=== PATIENT | male | born 1940 | race Caucasian/White ===

== ENCOUNTER 2017-04-15 12:47 | Outpatient (CLI) | payer MEDICARE, OTHER ==
[2017-04-15 13:09] LABS: BASOPHILS # (AUTO) 0.1 10^3/uL (0.0-0.1); BASOPHILS % (AUTO) 0.9 %; EOSINOPHILS # (AUTO) 0.3 10^3/uL (0.0-0.7); EOSINOPHILS % (AUTO) 4.6 %; HGB - HEMOGLOBIN 14.4 g/dL (14.0-18.0); LYMPHOCYTES # (AUTO) 1.4 10^3/uL (1.5-3.5); LYMPHOCYTES % (AUTO) 22.8 %; MEAN CORPUSCULAR HEMOGLOBIN 32.2 pg (27.0-31.0); MEAN CORPUSCULAR HGB CONC 33.5 g/dL (32.0-36.0); MEAN CORPUSCULAR VOLUME 96.1 fL (80.0-94.0); MEAN PLATELET VOLUME 9.1 fL (7.4-11.4); MONOCYTES # (AUTO) 0.5 10^3/uL (0.0-1.0); NEUTROPHILS # (AUTO) 3.8 10^3/uL (1.5-6.6); NEUTROPHILS % (AUTO) 63.7 %; PLT - PLATELET COUNT 156 10^3/uL (130-450); RED BLOOD COUNT 4.48 10^6/uL (4.70-6.10); RED CELL DISTRIBUTION WIDTH 14.9 % (12.0-15.0); WHITE BLOOD COUNT 5.9 x10^3/uL (4.8-10.8)
[2017-04-15 14:02] LABS: ALBUMIN 4.9 g/dL (3.2-5.5); ALKALINE PHOSPHATASE 59 IU/L (42-121); ALT ALANINE AMINOTRANSFERASE 68 IU/L (10-60); AST ASPARTATE AMINOTRANSFERASE 56 IU/L (10-42); BILIRUBIN,TOTAL 1.2 mg/dL (0.2-1.0); BUN - BLOOD UREA NITROGEN 14 mg/dL (6-20); CALCIUM 9.6 mg/dL (8.5-10.3); CARBON DIOXIDE - CO2 19 mmol/L (21-32); CHLORIDE 102 mmol/L (101-111); CREATININE 0.9 mg/dL (0.6-1.2); GFR - MDRD 82 (>89); GLUCOSE 127 mg/dL (70-100); SODIUM 137 mmol/L (135-145); TOTAL PROTEIN 7.3 g/dL (6.7-8.2)
[2017-04-15 14:18] LABS: DIGOXIN < 0.2 ng/mL
[2017-04-15 16:24] LABS: HB2 TOTAL 15.5 g/dL; HEMOGLOBIN A1C 0.59 g/dL; HEMOGLOBIN A1C % 5.6 % (4.6-6.2)
== END 2017-04-15 12:48 | disposition home or self-care (01) ==
LOC: LAB 12:47
PROVIDERS: ATTEND Internal Medicine
DX: M19.90 Unspecified osteoarthritis, unspecified site (principal); N40.0 Benign prostatic hyperplasia without lower urinary tract symptoms; E11.9 Type 2 diabetes mellitus without complications; I48.2 Chronic atrial fibrillation; C18.9 Malignant neoplasm of colon, unspecified; I25.10 Atherosclerotic heart disease of native coronary artery without angina pectoris; Z79.899 Other long term (current) drug therapy
CPT/HCPCS: 36415; 80053; 80162; 83036; 85025; 87640

== ENCOUNTER 2017-05-27 11:06 | Outpatient (CLI) | payer MEDICARE, OTHER | END 2017-05-27 11:07 | disposition home or self-care (01) | LOC: LAB 11:06 | PROVIDERS: ATTEND Orthopaedic Surgery | DX: Z01.812 Encounter for preprocedural laboratory examination (principal); M16.11 Unilateral primary osteoarthritis, right hip | CPT/HCPCS: 36415; 86850; 86900; 86901 ==

== ENCOUNTER 2017-05-28 06:11 | Inpatient (IN) | payer MEDICARE, OTHER ==
[2017-05-28] MEDS ORDERED: CELECOXIB 100 MG CAPSULE PO ONE (06:31)
[2017-05-28] MEDS ORDERED: ceFAZolin 2 GM/50 ML 2 GM/50 ML BAG IV ONE (06:31)
[2017-05-28] MEDS ORDERED: LACTATED RINGERS 1,000 ML IV ONE ×2 (07:14→09:39)
[2017-05-28] MEDS ORDERED: ROPIVACAINE 0.2% PF 20 ML AMPULE SUBQ ONE (08:27)
[2017-05-28] MEDS ORDERED: KETOROLAC 15 MG/ML VIAL IVP ONE (08:28)
[2017-05-28] MEDS ORDERED: EPINEPHrine 1 MG/ML AMP IVP ONE (08:29)
[2017-05-28] MEDS ORDERED: LIDOCAINE MPF 1%-EPI 1:200000 30 ML VIAL SUBQ ONE (08:29)
[2017-05-28] MEDS ORDERED: BUPIVACAINE 0.25% PF 30 ML VIAL SUBQ ONE (08:30)
[2017-05-28] MEDS ORDERED: ROCURONIUM 50 MG/5 ML VIAL IVP ONE (09:00)
[2017-05-28] MEDS ORDERED: LIDOCAINE-MPF 2% 5 ML VIAL IM ONE (09:00)
[2017-05-28] MEDS ORDERED: fentaNYL 100 MCG/2 ML VIAL IVP ONE (09:00)
[2017-05-28] MEDS ORDERED: ONDANSETRON 4 MG/2 ML VIAL IVP ONE (09:00)
[2017-05-28] MEDS ORDERED: MIDAZOLAM 2 MG/2 ML VIAL IVP ONE (09:00)
[2017-05-28] MEDS ORDERED: ePHEDrine 50 MG/ML VIAL IVP ONE (09:00)
[2017-05-28] MEDS ORDERED: ACETAMINOPHEN 1,000 MG/100 ML 100 ML IV ONE (09:00)
[2017-05-28] MEDS ORDERED: TRANEXAMIC ACID 1,000 MG/10 ML VIAL IV ONE (09:00)
[2017-05-28] MEDS ORDERED: PROPOFOL 200 MG/20 ML VIAL IVP ONE (09:00)
--- NOTE | 2017-05-28 10:00 | OPERATIVE REPORT ---
Operative Report - General Admit Date: 05/28/17 Procedure Date: 05/28/17 Planned Procedure: right GRETA Pre-Op Diagnosis: DJD right hip Procedure Performed: right GRETA Post Op Diagnosis: same - Procedure Note Primary Surgeon: brad Anesthesia Provider: Una Anesthesia Technique: General ET tube Estimated Blood Loss (mL): 200
[2017-05-28] MEDS ORDERED: PROCHLORPERAZINE 10 MG/2 ML VIAL IVP PRN (10:01)
[2017-05-28] MEDS ORDERED: ONDANSETRON 4 MG/2 ML VIAL IVP PRN (10:01)
[2017-05-28] MEDS ORDERED: SENNA 8.6 MG TABLET PO PRN (10:01)
[2017-05-28] MEDS ORDERED: BISACODYL 10 MG SUPP PR PRN (10:01)
[2017-05-28] MEDS ORDERED: oxyCOD/ACETAMIN 5 MG/325 MG TABLET PO PRN (10:01)
[2017-05-28] MEDS ORDERED: SODIUM CHLORIDE FLUSH 0.9% 10 ML SYRINGE IVP PRN (10:01)
--- NOTE | 2017-05-28 10:11 | PROVIDER PROGRESS NOTE ---
Subjective - General Admit Date: 05/28/17 Procedure Date: 05/28/17 Post Op Days: 0 Objective - Patient Data Vital Signs: Vital Signs x48h Temp Pulse Resp BP Pulse Ox 05/28/17 06:43 36.9 C 86 16 136/91 H 97 Weight: Weight 05/26/17 05/27/17 05/28/17 23:59 23:59 23:59 Weight (kg) 81.3 kg Intake & Output: Intake and Output Totals x24h 05/26/17 05/27/17 05/28/17 23:59 23:59 23:59 Output Total 100 Balance -100 - Lab Results Other Lab Results: Lab Results x24hrs 05/28/17 05/28/17 05/28/17 Range/Units 08:49 07:29 07:01 Whole Blood INR 1.1 (0.8-1.2) POC Whole Bld Glucose 158 H 133 H (70 - 100) mg/dL Impression/Plan - Problem List Problem List: s/p right total hip arthroplasty This patient is expected to be discharged prior to 96hr hospitalization.
[2017-05-28] MEDS: HYDROmorphone 1 MG/ML SYRINGE ONE ×2 (10:23→10:58)
[2017-05-28] MEDS ORDERED: fentaNYL 100 MCG/2 ML VIAL ONE (10:24)
[2017-05-28 11:38] LABS: HB2 TOTAL 12.5 g/dL; HEMOGLOBIN A1C 0.5 g/dL; HEMOGLOBIN A1C % 5.8 % (4.6-6.2)
[2017-05-28] MEDS: INSULIN ASPART 300 UNIT/3 ML PEN SUBQ SCH ×3 (11:53→21:34)
--- NOTE | 2017-05-28 12:33 | OPERATIVE REPORT ---
DATE OF SERVICE: 05/28/2017 Physician: Ginger Styles MD PREOPERATIVE DIAGNOSIS: Right hip osteoarthritis. POSTOPERATIVE DIAGNOSIS: Right hip osteoarthritis. PROCEDURE PERFORMED: Anterior approach right total hip arthroplasty. SURGEON: Ginger Styles MD ANESTHESIA: General by Breana Donnelly. INDICATIONS FOR SURGERY: The patient is a 76-year-old male who has progressive and severe degenerative arthritis of his right hip. This patient has failed nonoperative measures including anti-inflammatory use and previous hip injection. He desires total hip arthroplasty. FINDINGS AT SURGERY: Patient's hip joint showed effusion. His articulation showed absence of cartilage on the femoral head and mild cystic change in the acetabulum. DESCRIPTION OF OPERATIVE PROCEDURE: The patient was taken to the operating room. He was placed in a supine position. He was given a general anesthetic. The patient had a Oconnor catheter placed. His hip and legs were sterilely prepped and draped in standard fashion in preparation for anterior approach total hip arthroplasty. Following this, a surgical timeout, the surgery progressed with an approximately 8 cm incision directed off the anterolateral anterior superior iliac spine towards the femur. This incision taken through skin and subcutaneous tissue down to the fascia overlying tensor fascia muscle. This fascia was incised longitudinally and a muscle was gently elevated off the fascia to expose the medial border and dissect directly posterior than down to the hip capsule where further fatty tissues were encountered and vessels were ligated and the capsule exposed. Once the capsule was identified and retractors positioned, an anterior capsulectomy was performed. Retractors were positioned intra-articular and positioned around the acetabulum to expose the femoral head and neck. A neck osteotomy and a napkin ring of bone were removed with the saw and the corkscrew was used to remove the femoral head. The retractors were then repositioned around the acetabulum and labrum and soft tissues were reflected somewhat and excised to gain a very excellent view of the cup, at which point, sequential reaming was begun at 46 mm initially centralized and then advancing up to 53 mm for a 54 cup, which was a G7 cup inserted and then secured with 2 screws. A standard liner was applied of poly. The femur was exposed carefully with retractors. The foot of the table was bent down to allow positioning and access. A femoral canal starter was used to gain femoral entry followed by careful sequential broaching, working up to ultimately a size 13 broach and at this size trial reduction was performed and the most appropriate reconstruction of the anatomy occurred with a high offset femoral stem and a 40 mm standard neck length, head size and this was very stable and reconstructed limb lengths in a very excellent fashion. These components were removed and the implantable components brought in and the high offset 13 Taperloc stem inserted, followed by application of the size 40 standard neck head. The reduction was achieved and the hip tested for stability, which was excellent. Tested again for limb lengths, which were equal. Irrigation was performed, both with saline and with dilute Betadine solution. Following this, there was minimal bleeding and closure was undertaken with 0 Vicryl in a running fashion in the fascia over the tensor in the lateral thigh, followed by subcutaneous 0 and 2-0 Vicryl closure and skin 4-0 Monocryl closure. Sterile dressings were applied. The patient was then transported to the hospital bed and taken to the recovery room in stable condition. ESTIMATED BLOOD LOSS: 200 mL COMPLICATIONS: None. COUNTS: Sponge and needle counts correct. IMPLANTS USED: [employer] Taperloc size 13 high offset component, a standard 40 mm head, and a G7 acetabular cup inserted with 2 screws and a standard poly liner. TD: 05/28/2017 12:32
[2017-05-28] MEDS: KETOROLAC 15 MG/ML VIAL IVP PRN ×2 (12:50→20:08)
--- NOTE | 2017-05-28 14:08 | XRAY Report ---
TWO VIEW RIGHT HIP: 05/28/2017 CLINICAL INDICATION: Postop. FINDINGS: Frontal and crosstable lateral views of the right hip demonstrate a right hip replacement in place. There is no evidence of acute fracture or immediate hardware complication. IMPRESSION: EXPECTED POSTOPERATIVE APPEARANCE OF HIP REPLACEMENT. TD: 05/28/2017 14:07
[2017-05-28] MEDS: WARFARIN 5 MG TABLET PO SCH (14:30)
[2017-05-28] MEDS: SODIUM CHLORIDE FLUSH 0.9% 10 ML SYRINGE IVP SCH ×2 (14:32→20:36)
[2017-05-28] MEDS: SODIUM CHLORIDE 0.45% 1,000 ML IV SCH (15:49)
[2017-05-28] MEDS: ceFAZolin 2 GM/50 ML 2 GM/50 ML BAG IV SCH (16:09)
[2017-05-28] MEDS: metFORMIN 500 MG TABLET PO SCH (17:02)
[2017-05-28] MEDS: FINASTERIDE 5 MG TABLET PO SCH (20:35)
[2017-05-28] MEDS: FLUTICASONE NASAL SPRAY NAS SCH ×2 (20:35→20:38)
[2017-05-29] MEDS: ceFAZolin 2 GM/50 ML 2 GM/50 ML BAG IV SCH (00:09)
[2017-05-29] MEDS: SODIUM CHLORIDE 0.45% 1,000 ML IV SCH (03:43)
[2017-05-29] MEDS: KETOROLAC 15 MG/ML VIAL IVP PRN (03:50)
[2017-05-29] MEDS: SODIUM CHLORIDE FLUSH 0.9% 10 ML SYRINGE IVP SCH ×3 (04:38→18:36)
[2017-05-29 05:59] LABS: CALCIUM 8.3 mg/dL (8.5-10.3); CREATININE 1.1 mg/dL (0.6-1.2)
[2017-05-29] MEDS: INSULIN ASPART 300 UNIT/3 ML PEN SUBQ SCH ×4 (07:39→21:52)
[2017-05-29] MEDS: ALLOPURINOL 100 MG TABLET PO SCH (08:25)
[2017-05-29] MEDS: diltiaZEM CD 240 MG CAPSULE PO SCH (08:26)
[2017-05-29] MEDS: CHOLECALCIFEROL 1,000 UNIT TABLET PO SCH (08:32)
[2017-05-29] MEDS: ATORVASTATIN 40 MG TABLET PO SCH (08:32)
[2017-05-29] MEDS: FLUTICASONE NASAL SPRAY NAS SCH ×2 (08:33→21:51)
[2017-05-29] MEDS: metFORMIN 500 MG TABLET PO SCH ×2 (08:33→16:45)
[2017-05-29] MEDS: MULTIVITAMIN TABLET PO SCH (08:33)
[2017-05-29] MEDS: ASCORBIC ACID CHEW 500 MG TABLET PO SCH (08:33)
[2017-05-29] MEDS ORDERED: PHENOL THROAT SPRAY 177 ML MM PRN (08:40)
[2017-05-29 09:09] LABS: HGB - HEMOGLOBIN 11.6 g/dL (14.0-18.0)
--- NOTE | 2017-05-29 09:28 | PROVIDER PROGRESS NOTE ---
Subjective - General Admit Date: 05/28/17 Procedure Date: 05/28/17 Post Op Days: 1 Procedure Performed: right GRETA - Review of Systems Wound/Incisions: positive: Healing well Gastrointestinal: positive: No symptoms Genitourinary: positive: Hematuria (resolved today, but small amount last night) Objective - Patient Data Reviewed Vital Signs: Yes Vital Signs: Vital Signs x48h Temp Pulse Resp BP Pulse Ox 05/29/17 08:45 37.7 C H 140 H 18 120/82 H 92 05/29/17 04:50 37.8 C H 85 18 120/76 92 Weight: Weight 05/27/17 05/28/17 05/29/17 23:59 23:59 23:59 Weight (kg) 76.884 kg Intake & Output: Intake and Output Totals x24h 05/27/17 05/28/17 05/29/17 23:59 23:59 23:59 Intake Total 486 1620.000 Output Total 100 190 Balance 386 1430.000 - Lab Results Lab Results: 05/29/17 08:56 05/29/17 05:20 Other Lab Results: Lab Results x24hrs 05/29/17 05/29/17 05/29/17 Range/Units 08:56 07:31 05:20 Hgb 11.6 L (14.0-18.0) g/dL Hct 34.1 L (42.0-52.0) % Sodium 135 (135-145) mmol/L Potassium 4.6 (3.5-5.0) mmol/L Chloride 103 (101-111) mmol/L Carbon Dioxide 20 L (21-32) mmol/L Anion Gap 12.0 (6-13) BUN 21 H (6-20) mg/dL Creatinine 1.1 (0.6-1.2) mg/dL Estimated GFR (MDRD) 65 L (>89) Glucose 148 H (70-100) mg/dL POC Whole Bld Glucose 129 H (70 - 100) mg/dL Glycated Hemoglobin (4.6-6.2) % Estim Average Glucose (70-100) Calcium 8.3 L (8.5-10.3) mg/dL 05/28/17 05/28/17 05/28/17 Range/Units 11:41 11:14 10:52 Hgb (14.0-18.0) g/dL Hct (42.0-52.0) % Sodium (135-145) mmol/L Potassium (3.5-5.0) mmol/L Chloride (101-111) mmol/L Carbon Dioxide (21-32) mmol/L Anion Gap (6-13) BUN (6-20) mg/dL Creatinine (0.6-1.2) mg/dL Estimated GFR (MDRD) (>89) Glucose (70-100) mg/dL POC Whole Bld Glucose 160 H 195 H (70 - 100) mg/dL Glycated Hemoglobin 5.8 (4.6-6.2) % Estim Average Glucose 120 H (70-100) Calcium (8.5-10.3) mg/dL 05/28/17 Range/Units 10:49 Hgb (14.0-18.0) g/dL Hct (42.0-52.0) % Sodium (135-145) mmol/L Potassium (3.5-5.0) mmol/L Chloride (101-111) mmol/L Carbon Dioxide (21-32) mmol/L Anion Gap (6-13) BUN (6-20) mg/dL Creatinine (0.6-1.2) mg/dL Estimated GFR (MDRD) (>89) Glucose (70-100) mg/dL POC Whole Bld Glucose 185 H (70 - 100) mg/dL Glycated Hemoglobin (4.6-6.2) % Estim Average Glucose (70-100) Calcium (8.5-10.3) mg/dL - Imaging Results Radiology Imaging: positive: EMP read indepedently - Current Medications Current Medications: Current Medications Generic Name Dose Route Start Last Admin Trade Name Freq PRN Reason Stop Dose Admin Allopurinol 300 mg 05/29/17 09:00 05/29/17 08:25 Zyloprim PO 300 mg DAILY NEREIDA Administration Ascorbic Acid 500 mg 05/29/17 09:00 05/29/17 08:33 Vitamin C PO 500 mg DAILY NEREIDA Administration Atorvastatin Calcium 40 mg 05/29/17 09:00 05/29/17 08:32 Lipitor PO 40 mg DAILY NEREIDA Administration Cholecalciferol 1,000 unit 05/29/17 09:00 05/29/17 08:32 Vitamin D3 PO 1,000 unit DAILY NEREIDA Administration Diltiazem HCl 240 mg 05/29/17 09:00 05/29/17 08:26 Cardizem Cd PO 240 mg DAILY NEREIDA Administration Finasteride 5 mg 05/28/17 21:00 05/28/17 20:35 Proscar PO 5 mg QPM NEREIDA Administration Fluticasone Propionate 1 sprays 05/28/17 21:00 05/29/17 08:33 Flonase KIMBERLY 1 applic BID NEREIDA Administration Sodium Chloride 1,000 mls @ 100 mls/hr 05/28/17 11:00 05/29/17 03:43 Normal Saline 0.45% IV 100 mls/hr .Q10H NEREIDA Administration Insulin Aspart 1 - 5 unit 05/28/17 12:00 05/29/17 07:39 Novolog SUBQ Not Given 0800,1200,1700,2100 [facility] Protocol Ketorolac Tromethamine 15 mg 05/28/17 10:09 05/29/17 03:50 Toradol Inj IVP 05/30/17 05:00 15 mg Q6HR PRN Administration PAIN Metformin HCl 1,000 mg 05/28/17 17:00 05/29/17 08:33 Glucophage PO 1,000 mg BIDWM NEREIDA Administration Multivitamins 1 tab 05/29/17 08:00 05/29/17 08:33 Theragran PO 1 tab DAILYWM NEREIDA Administration Oxycodone/Acetaminophen 1 tab 05/28/17 10:01 05/29/17 06:19 Percocet 5 Mg/325 Mg PO 1 tab Q4HR PRN Administration PAIN Sodium Chloride 10 ml 05/28/17 14:00 05/29/17 04:38 Normal Saline Flush 0.9% IVP Not Given Q8HR NEREIDA Warfarin Sodium 5 mg 05/28/17 14:00 05/28/17 14:30 Coumadin PO 5 mg QDWARFARIN NEREIDA Administration - Physical Exam Wound/Incisions: positive: Dressing dry and intact General Appearance: positive: No acute distress Extremities: positive: Joint swelling Neurologic/Psychiatric: positive: Motor nml, Sensation nml, Mood/affect nml Impression/Plan - Problem List Problem List: POD #1 Pt is doing well. Had very small amount of Uretral meatus bleeding with jean cath yesterday that is now resolved and the patient is voiding well. Plan to continue with regular rehab.
[2017-05-29] MEDS: TAMSULOSIN 0.4 MG CAPSULE PO SCH (09:51)
[2017-05-29] MEDS: ACETAMINOPHEN 1,000 MG/100 ML 100 ML IV PRN ×2 (11:19→18:36)
[2017-05-29] MEDS: WARFARIN 5 MG TABLET PO SCH (14:00)
[2017-05-29] MEDS: FINASTERIDE 5 MG TABLET PO SCH (20:53)
[2017-05-29] MEDS: ACETAMINOPHEN 325 MG TABLET PO PRN (23:40)
[2017-05-30 06:06] LABS: INR 1.3 (0.8-1.2); PT - PROTHROMBIN TIME 14.9 secs (9.9-12.6)
[2017-05-30] MEDS: SODIUM CHLORIDE FLUSH 0.9% 10 ML SYRINGE IVP SCH (08:08)
[2017-05-30 08:41] LABS: HGB - HEMOGLOBIN 11.2 g/dL (14.0-18.0)
[2017-05-30] MEDS: ALLOPURINOL 100 MG TABLET PO SCH (08:47)
[2017-05-30] MEDS: metFORMIN 500 MG TABLET PO SCH (08:47)
[2017-05-30] MEDS: MULTIVITAMIN TABLET PO SCH (08:48)
[2017-05-30] MEDS: ATORVASTATIN 40 MG TABLET PO SCH (08:48)
[2017-05-30] MEDS: diltiaZEM CD 240 MG CAPSULE PO SCH (08:48)
[2017-05-30] MEDS: TAMSULOSIN 0.4 MG CAPSULE PO SCH (08:48)
[2017-05-30] MEDS: CHOLECALCIFEROL 1,000 UNIT TABLET PO SCH (08:48)
[2017-05-30] MEDS: ASCORBIC ACID CHEW 500 MG TABLET PO SCH (08:48)
[2017-05-30] MEDS: INSULIN ASPART 300 UNIT/3 ML PEN SUBQ SCH ×2 (08:51→12:00)
[2017-05-30] MEDS: FLUTICASONE NASAL SPRAY NAS SCH (08:52)
--- NOTE | 2017-05-30 10:39 | PROVIDER PROGRESS NOTE ---
Subjective - General Admit Date: 05/28/17 Procedure Date: 05/28/17 Post Op Days: 2 Procedure Performed: right GRETA - Review of Systems Wound/Incisions: positive: Dressing dry and intact General: positive: No symptoms Gastrointestinal: positive: No symptoms Genitourinary: positive: No symptoms Musculoskeletal: positive: Joint swelling Objective - Patient Data Reviewed Vital Signs: Yes Vital Signs: Vital Signs x48h Temp Pulse Resp BP BP Pulse Ox 05/30/17 08:50 36.7 C 96 18 135/76 H 98 05/30/17 04:05 37.2 C 95 16 121/78 95 Weight: Weight 05/28/17 05/29/17 05/30/17 23:59 23:59 23:59 Weight (kg) 76.884 kg Intake & Output: Intake and Output Totals x24h 05/28/17 05/29/17 05/30/17 23:59 23:59 23:59 Intake Total 486 3235.000 490 Output Total 100 740 850 Balance 386 2495.000 -360 - Lab Results Lab Results: 05/30/17 06:00 05/29/17 05:20 Other Lab Results: Lab Results x24hrs 05/30/17 05/30/17 05/29/17 Range/Units 06:00 05:30 20:28 Hgb 11.2 L (14.0-18.0) g/dL Hct 33.1 L (42.0-52.0) % PT 14.9 H (9.9-12.6) secs INR 1.3 H (0.8-1.2) POC Whole Bld Glucose 136 H (70 - 100) mg/dL 05/29/17 05/29/17 Range/Units 16:34 11:27 Hgb (14.0-18.0) g/dL Hct (42.0-52.0) % PT (9.9-12.6) secs INR (0.8-1.2) POC Whole Bld Glucose 116 H 161 H (70 - 100) mg/dL - Current Medications Current Medications: Current Medications Generic Name Dose Route Start Last Admin Trade Name Freq PRN Reason Stop Dose Admin Acetaminophen 650 - 975 mg 05/28/17 10:01 05/29/17 23:40 Tylenol PO 975 mg Q4HR PRN Administration PAIN Allopurinol 300 mg 05/29/17 09:00 05/30/17 08:47 Zyloprim PO 300 mg DAILY NEREIDA Administration Ascorbic Acid 500 mg 05/29/17 09:00 05/30/17 08:48 Vitamin C PO 500 mg DAILY NEREIDA Administration Atorvastatin Calcium 40 mg 05/29/17 09:00 05/30/17 08:48 Lipitor PO 40 mg DAILY NEREIDA Administration Cholecalciferol 1,000 unit 05/29/17 09:00 05/30/17 08:48 Vitamin D3 PO 1,000 unit DAILY NEREIDA Administration Diltiazem HCl 240 mg 05/29/17 09:00 05/30/17 08:48 Cardizem Cd PO 240 mg DAILY NEREIDA Administration Finasteride 5 mg 05/28/17 21:00 05/29/17 20:53 Proscar PO 5 mg QPM NEREIDA Administration Fluticasone Propionate 1 sprays 05/28/17 21:00 05/30/17 08:52 Flonase KIMBERLY 1 applic BID [facility] Administration Acetaminophen 100 mls @ 400 mls/hr 05/28/17 10:01 05/29/17 19:15 Ofirmev IV Infused Q6HR PRN Infusion PAIN Insulin Aspart 1 - 5 unit 05/28/17 12:00 05/30/17 08:51 Novolog SUBQ Not Given 0800,1200,1700,2100 [facility] Protocol Metformin HCl 1,000 mg 05/28/17 17:00 05/30/17 08:47 Glucophage PO 1,000 mg BIDWM [facility] Administration Multivitamins 1 tab 05/29/17 08:00 05/30/17 08:48 Theragran PO 1 tab DAILYWM [facility] Administration Oxycodone/Acetaminophen 1 tab 05/28/17 10:01 05/29/17 06:19 Percocet 5 Mg/325 Mg PO 1 tab Q4HR PRN Administration PAIN Sodium Chloride 10 ml 05/28/17 14:00 05/30/17 08:08 Normal Saline Flush 0.9% IVP Not Given Q8HR [facility] Tamsulosin HCl 0.4 mg 05/29/17 10:00 05/30/17 08:48 Flomax PO 0.4 mg DAILY NEREIDA Administration Warfarin Sodium 5 mg 05/28/17 14:00 05/29/17 14:00 Coumadin PO 5 mg QDWARFARIN NEREIDA Administration - Physical Exam Wound/Incisions: positive: Healing well, Dressing dry and intact Extremities: positive: Joint swelling Neurologic/Psychiatric: positive: Motor nml, Sensation nml, Mood/affect nml Impression/Plan - Problem List Problem List: POD #2 pt is alert, comfortable, ambulatory. States virtually no pain. wants to go home.
--- NOTE | 2017-05-30 11:11 | Discharge Plan ---
Discharge Plan Disposition: 01 Home, Self Care Condition: Good Diet: Diabetic Activity Restrictions: Wt Bearing as Tolerated Shower Restrictions: Yes (wound covered) Driving Restrictions: Yes (no driving) Assistance Devices: Walker Weight Bearing: Full Weight Additional Instructions or Follow Up instructions: dressing to be left intact, clean and dry. No Smoking: If you smoke, Please STOP! Call for help. Follow-up with: Mariann Deras MD [Primary Care Provider] - Ginger Styles MD [Provider Admit Priv/Credential] -
[2017-05-30 12:00] VITALS: BP 122/82
[2017-05-30] MEDS: ACETAMINOPHEN 325 MG TABLET PO PRN (12:26)
--- NOTE | 2017-06-06 17:35 | DISCHARGE SUMMARY ---
Physician: Ginger Styles MD DATE OF ADMISSION: 05/28/2017 DATE OF DISCHARGE: 05/30/2017 ADMISSION DIAGNOSIS: Right hip osteoarthritis. SECONDARY DIAGNOSIS: Diabetes mellitus. His operative procedure was 05/28/2017, a right total hip arthroplasty. REASON FOR ADMISSION: The patient is a 76-year-old male with progressive and worsening right hip osteoarthritis. The patient has failed nonoperative treatment. The patient has severe functional limitations and ongoing chronic aching pain in his hip and desires hip replacement. HOSPITAL COURSE: The patient was admitted and he underwent surgery on 2017. In the postoperative period, he was placed onto the medical/surgical floor receiving standard care after hip replacement, which included early PT and mobilization out of bed, pain management, venous thromboembolism prophylaxis and resumption of the patient's Coumadin. The patient did well postoperatively and at the time of discharge, he was independently getting out of bed and sitting in a chair and going to the bathroom. He had received a shower. His wound was healing uneventfully. The patient was tolerating p.o. pain medicine. At this point, the patient was discharged to home with planned followup in the clinic in a week. His medications at discharge were to be his regular home medications. He was to use his Coumadin and have followup INR testing by his primary care doctor. He was also to have hydrocodone for pain. TD: 06/06/2017 17:34 DOUGLAS
== END 2017-05-30 12:56 | disposition home or self-care (01) | DRG 470 ==
LOC: MS2 06:11
PROVIDERS: ADMIT Orthopaedic Surgery; ATTEND Orthopaedic Surgery
PROC: 0SR902A Replacement of Right Hip Joint with Metal on Polyethylene Synthetic Substitute, Uncemented, Open Approach (ICD-10-PCS; principal; 2017-05-28 07:30)
DX: M16.11 Unilateral primary osteoarthritis, right hip (principal); N40.0 Benign prostatic hyperplasia without lower urinary tract symptoms; E11.9 Type 2 diabetes mellitus without complications; I48.91 Unspecified atrial fibrillation; I25.10 Atherosclerotic heart disease of native coronary artery without angina pectoris; Z79.84 Long term (current) use of oral hypoglycemic drugs; Z79.01 Long term (current) use of anticoagulants; Z79.899 Other long term (current) drug therapy; Z95.1 Presence of aortocoronary bypass graft; Z87.891 Personal history of nicotine dependence; I25.2 Old myocardial infarction; Z85.038 Personal history of other malignant neoplasm of large intestine; Z87.442 Personal history of urinary calculi; Z72.89 Other problems related to lifestyle
CPT/HCPCS: 36415; 80048; 83036; 85014; 85018; 85610

== ENCOUNTER 2019-09-07 21:30 | Emergency (ER) | payer MEDICARE, OTHER ==
[2019-09-07] MEDS ORDERED: HYDROcod/ACETAM 5/325 MG TABLET PO STA (22:16)
--- NOTE | 2019-09-07 22:21 | ED Physician Documentation ---
History of Present Illness - Stated complaint Stated Complaint: RT SIDE HIP PX - REPLACED 2 YRS AGO - Chief complaint Chief Complaint: Ext Problem - History obtained from History obtained from: Patient, Family - Additonal information Additional information: Patient comes emergency department complaining of right hip pain that began to develop while he was sitting in a chair watching TV. Patient states that it is his habit to sit and watch some TV in the evening and this is not out of the ordinary for him. He states he has not had any direct trauma to the area and did not have any falls. He has a history of right hip prosthesis placed 2 years ago and has had no trouble until tonight. Patient states he began to feel a vague pain in his right inguinal area while he was sitting in the chair and felt that he needed to stand up and stretch it out. Patient states when he tried to stand, he felt a sharp pain in the same area and had difficulty completely extending to standing position. He was able to work his hip into standing position, but states that he was not able to walk normally with leg swinging between flexion and extension at the hip. He states he did limp to the stairs and actually was able to walk up the stairs without flexing his hip. He does have a cane at home, which he did use. Patient denies any back pain. No pain radiating into his knee. No numbness or tingling in his foot. Patient states that he has had occasional problems in the inguinal area since the surgery but usually this is just a vague pain and never anything like this. Patient denies any fevers or chills. No abdominal pain. No swelling of his distal right lower extremity. No other complaints at this time. Review of Systems Ten Systems: 10 systems reviewed and negative Constitutional: reports: Reviewed and negative Eyes: reports: Reviewed and negative Ears: reports: Reviewed and negative Nose: reports: Reviewed and negative Throat: reports: Reviewed and negative Cardiac: reports: Reviewed and negative Respiratory: reports: Reviewed and negative GI: reports: Reviewed and negative : reports: Reviewed and negative Skin: reports: Reviewed and negative Musculoskeletal: reports: Joint pain (Right hip), Pain with weight bearing Neurologic: reports: Reviewed and negative Psychiatric: reports: Reviewed and negative Endocrine: reports: Reviewed and negative Immunocompromised: reports: Reviewed and negative PD PAST MEDICAL HISTORY - Past Medical History Cardiovascular: Congestive heart failure, Hypertension, Coronary artery disease, DC, Atrial fibrillation Respiratory: None, Other Endocrine/Autoimmune: Type 2 diabetes GI: GI bleed, Ulcers, Colon polyps, Other : Benign prostate hypertrophy, Kidney stones HEENT: Chronic vision loss, Chronic hearing loss Psych: Post traumatic stress disorder Musculoskeletal: Osteoarthritis, Chronic back pain Derm: None - Past Surgical History General: Cholecystectomy, Bowel surgery Ortho: Other Cardiovascular: CABG HEENT: Tonsil/Adenoidectomy Derm: Skin cancer surgery - Present Medications Home Medications: Ambulatory Orders Medication Instructions Recorded Confirmed Atorvastatin [Lipitor] 40 mg ORAL DAILY 09/20/13 05/28/17 Cholecalciferol (Vitamin D3) 1,000 unit PO DAILY 09/20/13 05/20/17 [Vitamin D3] Finasteride 5 mg PO QPM 09/20/13 05/28/17 Metformin HCl 1,000 mg PO BIDWM 09/20/13 05/28/17 Multivitamin [Multi-Vitamin Daily] 1 each PO DAILY 09/20/13 05/20/17 Tamsulosin [Flomax] 0.4 mg ORAL QPM 09/20/13 05/28/17 Vitamin B Complex Vit C No.4 500 mg ORAL DAILY 09/20/13 05/20/17 [Super B Complex] Warfarin Sodium 5 mg PO SUTUWETHFRSA@0900 09/20/13 05/28/17 allopurinoL [Allopurinol] 300 mg ORAL DAILY 09/16/14 05/28/17 Ascorbic Acid [Vitamin C] 500 mg PO DAILY 05/20/17 05/20/17 Diltiazem HCl [Diltiazem 24Hr ER] 240 mg PO DAILY 05/20/17 05/28/17 Fluticasone [Flonase] 1 sprays KIMBERLY BID 05/20/17 05/28/17 Warfarin Sodium [Coumadin] 7.5 mg PO MO@0900 05/20/17 05/28/17 Vardenafil HCl [Staxyn] 10 mg PO PRN PRN 05/28/17 05/28/17 Acetaminophen [Tylenol] 650 - 975 mg PO Q4HR PRN tablet 05/30/17 Tamsulosin [Flomax] 0.4 mg PO DAILY capsule 05/30/17 Cyclobenzaprine [Flexeril] 10 mg PO TID PRN #20 tablet 09/08/19 Hydrocodone/Acetaminophen 1 - 2 each PO Q6H PRN #14 tablet 09/08/19 [Hydrocodon-Acetaminophen 5-325] - Allergies Allergies/Adverse Reactions: Allergies Allergy/AdvReac Type Severity Reaction Status Date / Time erythromycin base Allergy Increased Verified 09/07/19 21:41 [Erythromycin Base] anger/hostile lisinopril Allergy Altered Verified 09/07/19 21:41 Mental Status lovastatin [From Mevacor] Allergy Unknown Verified 09/07/19 21:41 morphine Allergy Hallucinati Verified 09/07/19 21:41 ons/Flashba cks - Social History Smoking Status: Former smoker PD ED PE NORMAL - Vitals Vital signs reviewed: Yes - General General: Alert and oriented X 3, No acute distress - HEENT HEENT: Atraumatic, PERRL, EOMI, Moist mucous membranes - Neck Neck: Supple, no meningeal sign - Cardiac Cardiac: RRR, No murmur - Respiratory Respiratory: No respiratory distress, Clear bilaterally - Abdomen Abdomen: Soft, Non tender, Non distended - Derm Derm: Normal color, Warm and dry, No rash - Extremities Extremities: No deformity, Other (Patient has some tremulousness of his right hip flexors. He is holding the hip in approximately 45 degrees of flexion. He is able to slowly extend, though this visibly causes him pain. There is no deformity or palpable dislocation on exam. Distal pulses are intact. There is no calf tenderness or distal edema. Patient has a strong femoral pulse.) - Neuro Neuro: Alert and oriented X 3, insulation helper 2-12 intact, No motor deficit, No sensory deficit, Normal speech - Psych Psych: Normal mood, Normal affect Results - Vitals Vitals: Oxygen O2 Source Room air - Rads (name of study) R hip xr Radiology: Final report received, EMP read indepedently, See rad report (NAD) PD MEDICAL DECISION MAKING - ED course Complexity details: reviewed results, re-evaluated patient, considered differential, d/w patient, d/w family ED course: Patient was worked up with x-rays and treated symptomatically with Vicodin. His x-ray series was negative for acute findings. The pt on re-evaluation was moving much more easily, and I d/w him and his family the results. We have discussed that he should get up frequently when sitting, so that he does not develop a spasm. Usual indications for return have been discussed. Departure - Departure Disposition: 01 Home, Self Care Clinical Impression: Right inguinal pain Condition: Stable Instructions: ED Spasm Muscle Prescriptions: Cyclobenzaprine [Flexeril] 10 mg PO TID PRN #20 tablet PRN Reason: Spasms Hydrocodone/Acetaminophen [Hydrocodon-Acetaminophen 5-325] 1 - 2 each PO Q6H PRN #14 tablet PRN Reason: pain Comments: Your x-rays look great. There is no evidence of patient or any problem with your surgical site. The pain and tenderness seems to be over the area where the muscles the flexor hip attach. Most likely, you have developed some spasm of the muscles, and this is most likely from extended periods of sitting. Please try to get up and about as much as possible and to be sure that you are stretching your hip through range of motion if you can. Sometimes it is easiest to do this while you are lying on your. You can try to straighten your leg all the way to stretch those muscles out and then move your leg from side to side to try to stretch the other muscles that move the hip, as well. Please follow-up with your primary care physician if your hip pain continues for more than the next few days. You may take the muscle relaxers and pain medication, as needed. Discharge Date/Time: 09/08/19 01:42
[2019-09-08] MEDS ORDERED: CYCLOBENZAPRINE 10 MG TABLET PO STA (00:06)
[2019-09-08] MEDS ORDERED: CYCLOBENZAPRINE 10 MG Prepack 2 PO PRN (01:26)
[2019-09-08] MEDS ORDERED: HYDROcod/ACET 5/325 Prepack 4 PO STA (01:26)
[2019-09-08 01:42] VITALS: BP 132/91
--- NOTE | 2019-09-08 08:33 | XRAY Report ---
Reason: r hip pain Procedure Date: 09/07/2019 Accession Number: [id number] / [id number] Procedure: XR - Hip w/Pelvis 2-3V RT CPT Code: Final Report FULL RESULT: PROCEDURE: Hip w/Pelvis 2-3V RT INDICATIONS: r hip pain TECHNIQUE: AP pelvis with lateral view of the right hip. COMPARISON: Right hip x-ray 04/21/2018. FINDINGS: Bones: No fractures or dislocation. There is a right hip prosthesis redemonstrated. Alignment appears unchanged. No new suspicious periprosthetic lucencies. Left hip demonstrates mild axial joint space narrowing. Pelvic ring appears intact. No suspicious bony lesions. Soft tissues: The visualized bowel gas pattern is normal. There are scattered vascular calcifications. IMPRESSION: 1. No fracture or dislocation. 2. Right hip prosthesis redemonstrated without definite evidence of hardware failure. Reviewed by: Jong Stearns MD on 09/08/2019 8:32 AM PDT Approved by: Jong Stearns MD on 09/08/2019 8:32 AM PDT Station ID: [id number]
== END 2019-09-08 01:42 | disposition home or self-care (01) ==
LOC: ED 21:30
DX: M25.551 Pain in right hip (principal); R10.30 Lower abdominal pain, unspecified; M62.838 Other muscle spasm; Z96.641 Presence of right artificial hip joint; I10 Essential (primary) hypertension; I48.91 Unspecified atrial fibrillation; Z79.01 Long term (current) use of anticoagulants; E11.9 Type 2 diabetes mellitus without complications; Z79.84 Long term (current) use of oral hypoglycemic drugs; Z87.891 Personal history of nicotine dependence
CPT/HCPCS: 73502; 99283; 99284; A9270

== ENCOUNTER 2020-01-10 02:44 | Outpatient (CLI) | payer MEDICARE, OTHER | END 2020-01-10 02:45 | disposition critical access hospital (66) | LOC: EMS 02:44 | PROVIDERS: ATTEND Surgery | DX: S01.01XA Laceration without foreign body of scalp, initial encounter (principal); M25.551 Pain in right hip; R53.1 Weakness; Z79.01 Long term (current) use of anticoagulants; W18.39XA Other fall on same level, initial encounter; Y93.01 Activity, walking, marching and hiking; Y92.003 Bedroom of unspecified non-institutional (private) residence as the place of occurrence of the external cause | CPT/HCPCS: A0425; A0429 ==

== ENCOUNTER 2020-01-10 02:55 | Emergency (ER) | payer MEDICARE, OTHER ==
--- NOTE | 2020-01-10 02:55 | ED Physician Documentation ---
PD HPI Fall - Stated complaint Stated Complaint: GLF, RT SIDE PAIN, BACK LAC, HIT HEAD - History obtained from History obtained from: Patient, EMS - History of Present Illness Mechanism of injury: Other ("my right leg wouldn't support me" (per patient)) Where injury occurred: Home Timing - onset: How many minutes ago (approximately 45 mintues [employer]) Injury(ies) location: Abdomen Pain level max: 8 (with movement involving RLE or abdomen (such as sitting up)) Pain level now: 1 (lying still) Quality of pain: Pain Associated symptoms: No: LOC, AMS, Amnesia, Seizures, Neck pain Symptoms improve with: Rest Worsens with: Movement, Palpation Contributing factors: Anticoagulated Similar symptoms before: Has not had sx before Recently seen: Not recently seen - Additional information Additional information: BIBA. Patient got out of bed and upon trying to stand, he fell; he says his right leg "wouldn't support me", although he cannot say if it was weak. He c/o right pelvic pain. He also struck his head on furniture but denies PHILLIPS, denies LOC. He fell last night when trying to stand when getting out of a chair, again due to his right leg not supporting him; he did not sustain injury at that time. Patient is on warfarin Review of Systems Constitutional: reports: Reviewed and negative Eyes: reports: Reviewed and negative Ears: reports: Reviewed and negative Nose: reports: Reviewed and negative Throat: reports: Reviewed and negative Cardiac: reports: Reviewed and negative Respiratory: reports: Reviewed and negative GI: reports: Abdominal Pain, Abdominal Swelling (RLQ). denies: Nausea, Vomiting : denies: Incontinent Skin: reports: Abrasion (s) (posterior scalp) Musculoskeletal: denies: Neck pain, Back pain Neurologic: reports: Numbness (focal numbness to right inguinal region and proximal thigh), Head injury. denies: Generalized weakness, Difficulty speaking, Near syncope, Syncope, Seizure, Confused, Altered mental status, Headache, LOC PD PAST MEDICAL HISTORY - Past Medical History Past Medical History: Yes Cardiovascular: Hypertension, High cholesterol, Atrial fibrillation Endocrine/Autoimmune: Type 2 diabetes : Kidney stones - Past Surgical History Ortho: Hip replacement (right) Cardiovascular: Pacemaker - Present Medications Home Medications: Ambulatory Orders Medication Instructions Recorded Confirmed Atorvastatin [Lipitor] 40 mg ORAL DAILY 09/20/13 05/28/17 Cholecalciferol (Vitamin D3) 1,000 unit PO DAILY 09/20/13 05/20/17 [Vitamin D3] Finasteride 2.5 mg PO QPM 09/20/13 05/28/17 Metformin HCl 1,000 mg PO BIDWM 09/20/13 05/28/17 Multivitamin [Multi-Vitamin Daily] 1 each PO DAILY 09/20/13 05/20/17 Tamsulosin [Flomax] 0.4 mg ORAL QPM 09/20/13 05/28/17 Vitamin B Complex Vit C No.4 500 mg ORAL DAILY 09/20/13 05/20/17 [Super B Complex] Warfarin Sodium 5 mg PO 09/20/13 05/28/17 allopurinoL [Allopurinol] 300 mg ORAL DAILY 09/16/14 05/28/17 Ascorbic Acid [Vitamin C] 500 mg PO DAILY 05/20/17 05/20/17 Fluticasone [Flonase] 1 sprays KIMBERLY BID 05/20/17 05/28/17 Vardenafil HCl [Staxyn] 10 mg PO PRN PRN 05/28/17 05/28/17 Acetaminophen [Tylenol] 650 - 975 mg PO Q4HR PRN tablet 05/30/17 Cyclobenzaprine [Flexeril] 10 mg PO TID PRN #20 tablet 09/08/19 Hydrocodone/Acetaminophen 1 - 2 each PO Q6H PRN #14 tablet 09/08/19 [Hydrocodon-Acetaminophen 5-325] Amiodarone [Pacerone] 200 mg ORAL QPM 01/10/20 01/10/20 Metoprolol Succinate [Toprol Xl] 12.5 mg PO DAILY 01/10/20 01/10/20 Potassium Chloride 10 meq ORAL DAILY 01/10/20 01/10/20 Torsemide 20 mg PO DAILY 01/10/20 01/10/20 Warfarin [Coumadin] 2.5 mg PO 1400 01/10/20 01/10/20 - Allergies Allergies/Adverse Reactions: Allergies Allergy/AdvReac Type Severity Reaction Status Date / Time erythromycin base Allergy Increased Verified 01/10/20 03:06 [Erythromycin Base] anger/hostile lisinopril Allergy Altered Verified 01/10/20 03:06 Mental Status lovastatin [From Mevacor] Allergy Unknown Verified 01/10/20 03:06 morphine Allergy Hallucinati Verified 01/10/20 03:06 ons/Flashba cks - Living Situation Living Situation: reports: With family Living Arrangement: reports: At home - Social History Does the pt smoke?: No PD ED PE NORMAL - Vitals Vital signs reviewed: Yes - General General: Alert and oriented X 3, No acute distress, Well developed/nourished - HEENT HEENT: PERRL, EOMI, Moist mucous membranes - Neck Neck: Supple, no meningeal sign, No bony TTP - Cardiac Cardiac: RRR, No murmur - Respiratory Respiratory: No respiratory distress, Clear bilaterally - Abdomen Abdomen: Soft, Other (RLQ is firm and exquisitely tender; the remainder of the abdomen is soft and nontender (some RLQ tenderness with deep palpation of LLQ and RUQ)) - Back Back: No CVA TTP, No spinal TTP - Derm Derm: Normal color, Warm and dry - Extremities Extremities: No deformity, No tenderness to palpate, No edema, Other (right inguinal and RLQ pain with attempts at right leg raise (hip extension)) - Neuro Neuro: Alert and oriented X 3, 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, No motor deficit, No sensory deficit, Normal speech Eye Opening: Spontaneous Motor: Obeys Commands Verbal: Oriented GCS Score: 15 - Psych Psych: Normal mood, Normal affect PD ED PE EXPANDED - HEENT HEENT Visual: 1 - abrasion (linear abrasion) 2 - abrasion (linear abrasion) Results - Vitals Vitals: Vital Signs - 24 hr 01/10/20 01/10/20 01/10/20 02:55 04:00 04:30 Temperature 36.4 C L Heart Rate 65 63 61 Respiratory 20 20 20 Rate Blood Pressure 188/76 H 134/68 H 120/58 L O2 Saturation 100 99 99 01/10/20 01/10/20 01/10/20 04:36 05:00 05:05 Temperature Heart Rate 65 63 63 Respiratory 17 21 22 Rate Blood Pressure 116/72 95/55 L 96/58 L O2 Saturation 99 97 98 01/10/20 01/10/20 05:15 05:32 Temperature Heart Rate 60 60 Respiratory 19 21 Rate Blood Pressure 96/58 L 98/57 L O2 Saturation 97 97 Oxygen O2 Source Room air - Labs Labs: Laboratory Tests 01/10/20 01/10/20 01/10/20 03:05 03:05 03:05 WBC 8.7 RBC 3.05 L Hgb 9.6 L Hct 30.8 L MCV 101.0 H MCH 31.5 H MCHC 31.2 L RDW 15.0 Plt Count 194 MPV 10.6 Neut # (Auto) 6.6 Lymph # (Auto) 1.0 L [place] # (Auto) 0.7 Eos # (Auto) 0.3 Baso # (Auto) 0.0 Absolute Nucleated RBC 0.00 Nucleated RBC % 0.0 PT 65.0 H INR 6.6 H* APTT 54.5 H Sodium 138 Potassium 4.5 Chloride 104 Carbon Dioxide 22 Anion Gap 12.0 BUN 24 H Creatinine 1.4 H Estimated GFR (MDRD) 49 L Glucose 124 H Calcium 9.3 Total Bilirubin 1.3 H AST 38 ALT 29 Alkaline Phosphatase 81 Total Protein 6.8 Albumin 4.1 Globulin 2.7 Albumin/Globulin Ratio 1.5 Lipase 25 Urine Color Urine Clarity Urine pH Ur Specific [place] Urine Protein Urine Glucose (UA) Urine Ketones Urine Occult Blood Urine Nitrite Urine Bilirubin Urine Urobilinogen Ur Leukocyte Esterase Ur Microscopic Review Urine Culture Comments Blood Type Antibody Screen Crossmatch IS Only 01/10/20 01/10/20 04:25 04:50 WBC RBC Hgb Hct MCV MCH MCHC RDW Plt Count MPV Neut # (Auto) Lymph # (Auto) [place] # (Auto) Eos # (Auto) Baso # (Auto) Absolute Nucleated RBC Nucleated RBC % PT INR APTT Sodium Potassium Chloride Carbon Dioxide Anion Gap BUN Creatinine Estimated GFR (MDRD) Glucose Calcium Total Bilirubin AST ALT Alkaline Phosphatase Total Protein Albumin Globulin Albumin/Globulin Ratio Lipase Urine Color YELLOW Urine Clarity CLEAR Urine pH 6.0 Ur Specific [place] <=1.005 Urine Protein NEGATIVE Urine Glucose (UA) NEGATIVE Urine Ketones NEGATIVE Urine Occult Blood NEGATIVE Urine Nitrite NEGATIVE Urine Bilirubin NEGATIVE Urine Urobilinogen 1 (NORMAL) Ur Leukocyte Esterase NEGATIVE Ur Microscopic Review NOT INDICATED Urine Culture Comments NOT INDICATED Blood Type O POSITIVE Antibody Screen NEGATIVE Crossmatch IS Only See Detail - Rads (name of study) CTH Radiology: Prelim report reviewed, See rad report pelvis xray Radiology: Prelim report reviewed, See rad report CT A/P with IV contrast Radiology: Prelim report reviewed, See rad report PD MEDICAL DECISION MAKING - ED course Complexity details: reviewed old records, reviewed results, re-evaluated patient, considered differential, d/w patient, d/w family ED course: CT A/P reveals "large right pelvic, extraperitoneal hemoatoma, with hemorrhage in right iliopsoas muscles, and evidence of active extravasation" (per radiology interpretation). CTH shows "right convexity subdural hematoma is probably chronic, although a very early acute subdural hemorrage is difficult to rule out" (per radiology interpretation). INR is 6.6; given this result, and the above findings on CT, K Centra given to reverse the warfarin. Patient's vital signs remained stable during ED stay, although late in stay his systolic blood pressures were mid 90s. He was awake, alert, oriented, pleasant and conversant throughout stay. D/W Dr. Madden regarding CT A/P results; he recommends transfer. Subsequent to our discussion, the CT head results returned as above (likely chronic SDH but possibly acute), and thus patient [place] [facility] [place] [place] [facility]. Departure - Departure Disposition: 02 Transfer Acute Care Hosp Clinical Impression: Supratherapeutic INR, Abdominal hematoma Fall Qualifiers: Encounter type: initial encounter Qualified Code(s): W19.XXXA - Unspecified fall, initial encounter Condition: Serious Discharge Date/Time: 01/10/20 06:04
[2020-01-10 03:14] LABS: BASOPHILS % (AUTO) 0.5 %; EOSINOPHILS # (AUTO) 0.3 10^3/uL (0.0-0.7); EOSINOPHILS % (AUTO) 3.6 %; HGB - HEMOGLOBIN 9.6 g/dL (14.0-18.0); LYMPHOCYTES % (AUTO) 11.4 %; MEAN CORPUSCULAR HEMOGLOBIN 31.5 pg (27.0-31.0); MEAN CORPUSCULAR HGB CONC 31.2 g/dL (32.0-36.0); MEAN PLATELET VOLUME 10.6 fL (7.4-11.4); MONOCYTES # (AUTO) 0.7 10^3/uL (0.0-1.0); MONOCYTES % (AUTO) 8.5 %; NEUTROPHILS # (AUTO) 6.6 10^3/uL (1.5-6.6); NEUTROPHILS % (AUTO) 75.5 %; PLT - PLATELET COUNT 194 10^3/uL (130-450); RED BLOOD COUNT 3.05 10^6/uL (4.70-6.10); WHITE BLOOD COUNT 8.7 x10^3/uL (4.8-10.8)
[2020-01-10 03:27] LABS: ALBUMIN 4.1 g/dL (3.2-5.5); ALBUMIN/GLOBULIN RATIO 1.5 (1.0-2.2); BILIRUBIN,TOTAL 1.3 mg/dL (0.2-1.0); CALCIUM 9.3 mg/dL (8.5-10.3); CREATININE 1.4 mg/dL (0.6-1.2); TOTAL PROTEIN 6.8 g/dL (6.7-8.2)
[2020-01-10 03:33] LABS: PARTIAL THROMBOPLASTIN TIME 54.5 secs (24.9-33.3)
[2020-01-10 03:34] LABS: INR 6.6 (0.8-1.2)
[2020-01-10] MEDS ORDERED: IOVERSOL 320 100 ML VIAL IVP ONE ×2 (03:43→04:22)
[2020-01-10] MEDS ORDERED: PROTHROMBIN COMPLEX CONC 500 UNIT VIAL IVP STA (04:01)
[2020-01-10 04:56] LABS: BILIRUBIN,URINE NEGATIVE (NEGATIVE); GLUCOSE, URINE (UA) NEGATIVE (NEGATIVE); KETONES,URINE (UA) NEGATIVE (NEGATIVE); LEUKOCYTE ESTERASE, URINE NEGATIVE (NEGATIVE); NITRITE,URINE NEGATIVE (NEGATIVE); OCCULT BLOOD,URINE NEGATIVE (NEGATIVE); PROTEIN,URINE NEGATIVE (NEGATIVE); UROBILINOGEN,URINE 1 (NORMAL) E.U./dL (NORMAL)
[2020-01-10 04:57] LABS: CLARITY,URINE CLEAR (CLEAR)
[2020-01-10 05:33] VITALS: BP 98/57
[2020-01-10] MEDS ORDERED: PHYTONADIONE 10 MG/ML AMP IVP STA (05:59)
--- NOTE | 2020-01-10 08:57 | CT Report ---
PROCEDURE: HEAD WO INDICATIONS: fall, head injury, on warfarin TECHNIQUE: Noncontrast 4.5 mm thick angled axial sections acquired from the foramen magnum to the vertex. For r adiation dose reduction, the following was used: automated exposure control, adjustment of mA and/or kV according to patient size. COMPARISON: None. FINDINGS: Image quality: Excellent. CSF spaces: Basal cisterns are patent. Lateral right frontal 4 mm extra axial fluid collection proba carissa chronic subdural blood products however technically indeterminate Brain: No midline shift. No intracranial masses or hemorrhage. Swartz-white matter interface is norm al. Skull and face: Calvarium and visualized facial bones are intact, without suspicious lesions. Large left maxillary mucous retention cyst or polyp. 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 Consider further evaluation with follow-up head CT as clinically warranted. Findings are concordant with the preliminary study interpretation provided at the time of the study. Reviewed by: Anibal Torres MD on 01/10/2020 8:56 AM PDT Approved by: Anibal Torres MD on 01/10/2020 8:56 AM PDT Station ID: [id number]
--- NOTE | 2020-01-10 08:59 | XRAY Report ---
PROCEDURE: Pelvis 1 View INDICATIONS: fall, right bony pelvis pain TECHNIQUE: 1 view(s) of the pelvis acquired. COMPARISON: None. FINDINGS: Bones: No fractures or dislocations. Expected postoperative alignment of right hip arthroplasty. Low er lumbar spondylosis. Mild left hip joint degeneration. No suspicious bony lesions. Soft tissues: Visualized bowel gas pattern is normal. No suspicious soft tissue calcifications. IMPRESSION: No fracture Reviewed by: Anibal Torres MD on 01/10/2020 8:57 AM PDT Approved by: Anibal Torres MD on 01/10/2020 8:57 AM PDT Station ID: [id number]
--- NOTE | 2020-01-10 09:04 | CT Report ---
PROCEDURE: Abdomen/Pelvis W INDICATIONS: fall, RLQ pain CONTRAST: IV CONTRAST: Optiray 320 ml: 100 PO CONTRAST: *NO PO CONTRAST TECHNIQUE: After the administration of IV contrast, 5 mm thick sections acquired from the diaphragms to the symp hysis. 5 mm thick coronal and sagittal reformats were acquired. For radiation dose reduction, the f ollowing was used: automated exposure control, adjustment of mA and/or kV according to patient size. COMPARISON: None. FINDINGS: Image quality: Excellent. ABDOMEN: Lung bases: Lung bases are clear. Heart size is normal. Coronary artery calcifications. Solid organs: Liver and spleen are normal in size and enhancement. Gallbladder surgically absent B iliary system is non dilated. Pancreas enhances normally. No adrenal nodules. Kidneys demonstrate normal size and enhancement, without hydronephrosis. Peritoneum and bowel: Bowel loops demonstrate normal wall thickness and caliber. No free fluid or a ir. Nodes and vessels: No retroperitoneal or mesenteric adenopathy by size criteria. Aorta and inferior vena cava are normal in size. Miscellaneous: No ventral hernias. PELVIS: Large right extraperitoneal pelvic and intramuscular hematoma, involving the iliopsoas muscles which are enlarged. There is extravasation of contrast material suggesting active bleeding. This measures approximately 13.5 x 9 x 7 cm. Genitourinary: Bladder wall thickness is normal. Miscellaneous: No inguinal hernias or adenopathy. Bones: No suspicious bony lesions. No vertebral body compression fractures. IMPRESSION: Large right pelvic hematoma, with evidence of active bleeding as discussed above. Findings are concordant with the preliminary study interpretation provided at the time of the study. Reviewed by: Anibal Torres MD on 01/10/2020 9:03 AM PDT Approved by: Anibal Torres MD on 01/10/2020 9:03 AM PDT Station ID: [id number]
== END 2020-01-10 06:04 | disposition short-term general hospital (02) ==
LOC: EDUNIT# → ED 02:55
DX: S30.1XXA Contusion of abdominal wall, initial encounter (principal); S00.01XA Abrasion of scalp, initial encounter; W01.190A Fall on same level from slipping, tripping and stumbling with subsequent striking against furniture, initial encounter; Y92.003 Bedroom of unspecified non-institutional (private) residence as the place of occurrence of the external cause; Z91.81 History of falling; I62.03 Nontraumatic chronic subdural hemorrhage; R79.1 Abnormal coagulation profile; Z79.01 Long term (current) use of anticoagulants; I48.91 Unspecified atrial fibrillation; I10 Essential (primary) hypertension; E11.9 Type 2 diabetes mellitus without complications; Z79.84 Long term (current) use of oral hypoglycemic drugs; Z96.641 Presence of right artificial hip joint; M16.12 Unilateral primary osteoarthritis, left hip; M47.816 Spondylosis without myelopathy or radiculopathy, lumbar region
CPT/HCPCS: 36415; 70450; 72170; 74177; 80053; 81003; 83690; 85025; 85610; 85730; 86850; 86900; 86901; 86920; 96374; 96375; 99285; C9132; Q9967; 81001; 87086

== ENCOUNTER 2020-02-04 08:59 | Outpatient (CLI) | payer MEDICARE, OTHER ==
--- NOTE | 2020-02-04 09:37 | CT Report ---
PROCEDURE: HEAD WO INDICATIONS: PERSONAL HISTORY OF OTHER DISEASES OF THE CIRCULAT TECHNIQUE: Noncontrast 4.5 mm thick angled axial sections acquired from the foramen magnum to the vertex. For r adiation dose reduction, the following was used: automated exposure control, adjustment of mA and/or kV according to patient size. COMPARISON: 01/10/2020. FINDINGS: Image quality: Excellent. CSF spaces: Basal cisterns are patent. Ventricles are normal in size and shape. Brain: No midline shift. Small right frontal convexity low-density extra-axial fluid collection is s table compared to 01/10/2020. Right frontal convexity low density extra axial fluid collection is not producing mass effect on the adjacent brain parenchyma. Swartz-white matter interface is normal. There is cerebral volume loss for age, with resultant ventricular and sulcal prominence. There are periven tricular and deep white matter chronic small vessel ischemic changes. There is intracranial internal carotid artery and vertebral artery atherosclerosis. Skull and face: Calvarium and visualized facial bones are intact, without suspicious lesions. Sinuses: Left maxillary sinus mucous retention cyst versus polyp. The mastoids are clear. IMPRESSION: 1. No acute intracranial disease process. 2. Small right frontal convexity low-density extra-axial fluid collection stable compared to 0. Finding may represent small chronic subdural hematoma versus subdural hygroma. 3. No abnormal intracranial mass, mass effect or midline shift. Reviewed by: Ame Pritchard MD, PhD on 02/04/2020 9:36 AM PDT Approved by: Ame Pritchard MD, PhD on 02/04/2020 9:36 AM PDT Station ID: [id number]
== END 2020-02-04 09:00 | disposition home or self-care (01) ==
LOC: DI 08:59
PROVIDERS: ATTEND Internal Medicine
DX: I62.00 Nontraumatic subdural hemorrhage, unspecified (principal); Z86.79 Personal history of other diseases of the circulatory system
CPT/HCPCS: 70450

== ENCOUNTER 2020-02-15 12:20 | Outpatient (CLI) | payer MEDICARE, OTHER ==
[2020-02-15] MEDS ORDERED: IOVERSOL 320 100 ML VIAL IVP ONE ×2 (12:33→13:55)
[2020-02-15] MEDS ORDERED: IOVERSOL 320 50 ML VIAL ONE (12:33)
[2020-02-15] MEDS ORDERED: IOVERSOL 320 50 ML VIAL PO ONE (13:55)
--- NOTE | 2020-02-15 14:23 | CT Report ---
PROCEDURE: Abdomen/Pelvis W INDICATIONS: LLQ PAIN CONTRAST: IV CONTRAST: Optiray 320 ml: 100 PO CONTRAST: Optiray 320 ml50 TECHNIQUE: After the administration of contrast, 5 mm thick sections acquired from the diaphragms to the sym physis. 5 mm thick coronal and sagittal reformats were acquired. For radiation dose reduction, the following was used: automated exposure control, adjustment of mA and/or kV according to patient size . COMPARISON: None. FINDINGS: Image quality: Excellent. ABDOMEN: Lung bases: Lung bases are clear. Visualized heart is enlarged. Postsurgical changes compatible with CABG procedure noted. Cardiac pacer leads noted.S"whows Solid organs: Liver is normal in size and enhancement. Spleen is normal in size. There is lack of co ntrast enhancement the inferior margin of the spleen compatible with splenic infarct which has occurr ed in the interval since prior exam obtained 01/10/2020. Gallbladder is surgically absent Biliary sys tem is non dilated. Pancreas enhances normally. No adrenal nodules. Kidneys demonstrate normal siz e and enhancement, without hydronephrosis. Peritoneum and bowel: Bowel loops demonstrate normal wall thickness and caliber. No free fluid or a ir. Nodes and vessels: No retroperitoneal or mesenteric adenopathy by size criteria. Aorta and inferior vena cava are normal in size. Scattered atherosclerotic calcifications are noted in the abdominal an d pelvic vasculature. Miscellaneous: No ventral hernias. PELVIS: Genitourinary: Bladder wall thickness is normal. Miscellaneous: No inguinal hernias or adenopathy. Right psoas hematoma/seroma is decreased in size c ompared to 01/10/2020 measuring 2.3 x 1.2 x 3.6 cm in the current study. Large right pelvic hematoma/s eroma is decreased in size measuring 5.0 x 3.8 x 5.0 cm. No acute bleed is identified. Bones: No suspicious bony lesions. No vertebral body compression fractures. Spine degenerative disc disease and facet arthropathy are noted. Right hip arthroplasty. IMPRESSION: 1. Acute/subacute inferior left splenic infarct. 2. Right pelvic and right psoas hematoma/seromas or decreased in size compared to 01/10/2020. Reviewed by: Ame Pritchard MD, PhD on 02/15/2020 2:22 PM PST Approved by: Ame Pritchard MD, PhD on 02/15/2020 2:22 PM PST Station ID: [id number]
== END 2020-02-15 12:21 | disposition home or self-care (01) ==
LOC: DI 12:20
PROVIDERS: ATTEND Internal Medicine
DX: R10.32 Left lower quadrant pain (principal); D73.5 Infarction of spleen; N50.1 Vascular disorders of male genital organs
CPT/HCPCS: 74177; Q9967

== ENCOUNTER 2022-01-22 11:11 | Outpatient (CLI) | payer MEDICARE, OTHER ==
--- NOTE | 2022-01-22 17:27 | XRAY Report ---
PROCEDURE: Chest 2 View X-Ray INDICATIONS: COUGH TECHNIQUE: 2 view(s) of the chest. COMPARISON: 11/07/2015 FINDINGS: Surgical changes and devices: Interval pacer, remote CABG Lungs and pleura: No pleural effusions or pneumothorax. Lungs are clear. Eventration of right mattie diaphragm. Mediastinum: Mediastinal contours are normal. Cardiomegaly. Bones and chest wall: No suspicious bony abnormalities. Soft tissues appear unremarkable. IMPRESSION: Cardiomegaly. No evidence of acute pulmonary process. Reviewed by: Gume Funes MD on 01/22/2022 5:25 PM PDT Approved by: Gume Funes MD on 01/22/2022 5:25 PM PDT Station ID: [id number]
== END 2022-01-22 11:12 | disposition home or self-care (01) ==
LOC: DI 11:11
PROVIDERS: ATTEND Internal Medicine
DX: R05.3 Chronic cough (principal); I51.7 Cardiomegaly; Z00.00 Encounter for general adult medical examination without abnormal findings; I48.91 Unspecified atrial fibrillation; C44.91 Basal cell carcinoma of skin, unspecified; N40.0 Benign prostatic hyperplasia without lower urinary tract symptoms; C18.9 Malignant neoplasm of colon, unspecified; N18.9 Chronic kidney disease, unspecified; I25.10 Atherosclerotic heart disease of native coronary artery without angina pectoris; E11.9 Type 2 diabetes mellitus without complications; Z86.010 Personal history of colon polyps; K62.5 Hemorrhage of anus and rectum; R10.9 Unspecified abdominal pain; J30.2 Other seasonal allergic rhinitis; L98.9 Disorder of the skin and subcutaneous tissue, unspecified
CPT/HCPCS: 80053; 80061; 81001; 81003; 82043; 82570; 83036; 83721; 83880; 84153; 84154; 84443; 85025; 87086

== ENCOUNTER 2022-01-31 08:48 | Outpatient (CLI) | payer MEDICARE, OTHER ==
--- NOTE | 2022-01-31 13:54 | Ultrasound Report ---
PROCEDURE: Abdomen Limited INDICATIONS: ELEVATED LIVER ENZYMES TECHNIQUE: Real-time focused scanning was performed of the abdomen, with image documentation. COMPARISON: CT of abdomen and pelvis dated 02/15/2020 FINDINGS: Heterogeneously increased liver parenchymal echotexture is seen. No discrete hepatic lesion. Main por ami vein is patent and show normal hepatopedal flow. Gallbladder is surgically absent. There is no intrahepatic biliary duct dilatation. Common bile duct measures up to 3.8 mm in diameter and is within normal limits. Visualized portion of pancreas shows no gross abnormality. Right kidney measures 10.2 cm in length and 1.1 cm in renal cortical thickness. No hydronephrosis or solid appearing renal lesion. IMPRESSION: 1. Hepatic steatosis, no discrete hepatic lesion. 2. Gallbladder is surgically absent. No biliary ductal dilatation. 3. Rest of the exam is unremarkable. Reviewed by: Jessee Rich MD on 01/31/2022 1:52 PM PDT Approved by: Jessee Rich MD on 01/31/2022 1:52 PM PDT Station ID: [id number]
== END 2022-01-31 08:49 | disposition home or self-care (01) ==
LOC: DI 08:48
PROVIDERS: ATTEND Internal Medicine
DX: R74.8 Abnormal levels of other serum enzymes (principal); K76.0 Fatty (change of) liver, not elsewhere classified; Z90.49 Acquired absence of other specified parts of digestive tract

== ENCOUNTER 2022-02-28 09:32 | Outpatient (CLI) | payer MEDICARE, OTHER | END 2022-02-28 09:33 | disposition home or self-care (01) | LOC: LAB 09:32 | PROVIDERS: ATTEND Internal Medicine | DX: I48.91 Unspecified atrial fibrillation (principal); I48.92 Unspecified atrial flutter; Z79.01 Long term (current) use of anticoagulants | CPT/HCPCS: 36416; 85610 ==

== ENCOUNTER 2022-03-07 11:08 | Outpatient (CLI) | payer MEDICARE, OTHER | END 2022-03-07 11:09 | disposition home or self-care (01) | LOC: LAB 11:08 | PROVIDERS: ATTEND Internal Medicine | DX: I48.91 Unspecified atrial fibrillation (principal); I48.92 Unspecified atrial flutter; Z79.01 Long term (current) use of anticoagulants | CPT/HCPCS: 36416; 85610 ==

== ENCOUNTER 2022-03-23 09:29 | Outpatient (CLI) | payer MEDICARE, OTHER | END 2022-03-23 09:30 | disposition home or self-care (01) | LOC: LAB 09:29 | PROVIDERS: ATTEND Internal Medicine | DX: I48.91 Unspecified atrial fibrillation (principal); I48.92 Unspecified atrial flutter; Z79.01 Long term (current) use of anticoagulants | CPT/HCPCS: 36416; 85610 ==

== ENCOUNTER 2022-04-09 09:19 | Outpatient (CLI) | payer MEDICARE, OTHER | END 2022-04-09 09:20 | disposition home or self-care (01) | LOC: LAB 09:19 | PROVIDERS: ATTEND Internal Medicine | DX: I48.91 Unspecified atrial fibrillation (principal); I48.92 Unspecified atrial flutter; Z79.01 Long term (current) use of anticoagulants | CPT/HCPCS: 36416; 85610 ==

== ENCOUNTER 2022-05-08 08:52 | Outpatient (CLI) | payer MEDICARE, OTHER | END 2022-05-08 08:53 | disposition home or self-care (01) | LOC: LAB 08:52 | PROVIDERS: ATTEND Internal Medicine | DX: I48.91 Unspecified atrial fibrillation (principal); I48.92 Unspecified atrial flutter; Z79.01 Long term (current) use of anticoagulants | CPT/HCPCS: 36416; 85610 ==

== ENCOUNTER 2022-05-14 10:14 | Outpatient (CLI) | payer MEDICARE, OTHER | END 2022-05-14 10:15 | disposition home or self-care (01) | LOC: LAB 10:14 | PROVIDERS: ATTEND Internal Medicine | DX: I48.91 Unspecified atrial fibrillation (principal); I48.92 Unspecified atrial flutter; Z79.01 Long term (current) use of anticoagulants | CPT/HCPCS: 36416; 85610 ==

== ENCOUNTER 2022-05-29 09:18 | Outpatient (CLI) | payer MEDICARE, OTHER | END 2022-05-29 09:19 | disposition home or self-care (01) | LOC: LAB 09:18 | PROVIDERS: ATTEND Internal Medicine | DX: I48.91 Unspecified atrial fibrillation (principal); I48.92 Unspecified atrial flutter; Z79.01 Long term (current) use of anticoagulants | CPT/HCPCS: 36416; 85610 ==

== ENCOUNTER 2022-06-19 14:00 | Outpatient (CLI) | payer MEDICARE, OTHER | END 2022-06-19 14:01 | disposition home or self-care (01) | LOC: LAB 14:00 | PROVIDERS: ATTEND Internal Medicine | DX: I48.91 Unspecified atrial fibrillation (principal); I48.92 Unspecified atrial flutter; Z79.01 Long term (current) use of anticoagulants | CPT/HCPCS: 36416; 85610 ==

== ENCOUNTER 2022-07-18 11:16 | Outpatient (CLI) | payer MEDICARE, OTHER | END 2022-07-18 11:17 | disposition home or self-care (01) | LOC: LAB 11:16 | PROVIDERS: ATTEND Internal Medicine | DX: I48.91 Unspecified atrial fibrillation (principal); I48.92 Unspecified atrial flutter; Z79.01 Long term (current) use of anticoagulants | CPT/HCPCS: 36416; 85610 ==

== ENCOUNTER 2022-08-01 10:29 | Outpatient (CLI) | payer MEDICARE, OTHER | END 2022-08-01 10:30 | disposition home or self-care (01) | LOC: LAB 10:29 | PROVIDERS: ATTEND Internal Medicine | DX: I48.91 Unspecified atrial fibrillation (principal); I48.92 Unspecified atrial flutter; Z79.01 Long term (current) use of anticoagulants | CPT/HCPCS: 36416; 85610 ==

== ENCOUNTER 2022-08-08 09:24 | Outpatient (CLI) | payer MEDICARE, OTHER | END 2022-08-08 09:25 | disposition home or self-care (01) | LOC: LAB 09:24 | PROVIDERS: ATTEND Internal Medicine | DX: I48.91 Unspecified atrial fibrillation (principal); I48.92 Unspecified atrial flutter; Z79.01 Long term (current) use of anticoagulants | CPT/HCPCS: 36416; 85610 ==

== ENCOUNTER 2022-08-13 08:35 | Outpatient (CLI) | payer MEDICARE, OTHER ==
[2022-08-13 08:53] LABS: BASOPHILS # (AUTO) 0.1 10^3/uL (0.0-0.1); BASOPHILS % (AUTO) 0.9 %; EOSINOPHILS # (AUTO) 0.2 10^3/uL (0.0-0.7); EOSINOPHILS % (AUTO) 4.1 %; HCT - HEMATOCRIT 44.5 % (42.0-52.0); HGB - HEMOGLOBIN 13.9 g/dL (14.0-18.0); LYMPHOCYTES % (AUTO) 16.8 %; MEAN CORPUSCULAR HEMOGLOBIN 31.5 pg (27.0-31.0); MEAN CORPUSCULAR HGB CONC 31.2 g/dL (32.0-36.0); MEAN CORPUSCULAR VOLUME 100.9 fL (80.0-94.0); MEAN PLATELET VOLUME 11.2 fL (7.4-11.4); MONOCYTES # (AUTO) 0.5 10^3/uL (0.0-1.0); MONOCYTES % (AUTO) 9.2 %; NEUTROPHILS # (AUTO) 3.9 10^3/uL (1.5-6.6); NEUTROPHILS % (AUTO) 68.6 %; PLT - PLATELET COUNT 177 10^3/uL (130-450); RED BLOOD COUNT 4.41 10^6/uL (4.70-6.10); WHITE BLOOD COUNT 5.7 x10^3/uL (4.8-10.8)
[2022-08-13 09:09] LABS: CREATININE 2.2 mg/dL (0.6-1.2); POTASSIUM 4.7 mmol/L (3.5-5.0)
== END 2022-08-13 08:36 | disposition home or self-care (01) ==
LOC: LAB 08:35
PROVIDERS: ATTEND Internal Medicine Cardiovascular Disease
DX: I48.0 Paroxysmal atrial fibrillation (principal)
CPT/HCPCS: 36415; 80048; 85025

== ENCOUNTER 2022-08-14 08:56 | Outpatient (CLI) | payer MEDICARE, OTHER | END 2022-08-14 08:57 | disposition home or self-care (01) | LOC: LAB 08:56 | PROVIDERS: ATTEND Internal Medicine | DX: I48.91 Unspecified atrial fibrillation (principal); I48.92 Unspecified atrial flutter; Z79.01 Long term (current) use of anticoagulants | CPT/HCPCS: 36416; 85610 ==

== ENCOUNTER 2022-08-15 10:07 | Outpatient (CLI) | payer MEDICARE, OTHER | END 2022-08-15 10:08 | disposition home or self-care (01) | LOC: LAB 10:07 | PROVIDERS: ATTEND Internal Medicine | DX: I48.91 Unspecified atrial fibrillation (principal); I48.92 Unspecified atrial flutter; Z79.01 Long term (current) use of anticoagulants | CPT/HCPCS: 36416; 85610 ==

== ENCOUNTER 2022-08-27 09:13 | Outpatient (CLI) | payer MEDICARE, OTHER | END 2022-08-27 09:14 | disposition home or self-care (01) | LOC: LAB 09:13 | PROVIDERS: ATTEND Internal Medicine | DX: I48.91 Unspecified atrial fibrillation (principal); I48.92 Unspecified atrial flutter; Z79.01 Long term (current) use of anticoagulants | CPT/HCPCS: 36416; 85610 ==

== ENCOUNTER 2022-09-21 09:49 | Outpatient (CLI) | payer MEDICARE, OTHER | END 2022-09-21 09:50 | disposition home or self-care (01) | LOC: LAB 09:49 | PROVIDERS: ATTEND Internal Medicine | DX: I48.91 Unspecified atrial fibrillation (principal); I48.92 Unspecified atrial flutter; Z79.01 Long term (current) use of anticoagulants | CPT/HCPCS: 36416; 85610 ==

== ENCOUNTER 2022-10-23 10:21 | Outpatient (CLI) | payer MEDICARE, OTHER | END 2022-10-23 10:22 | disposition home or self-care (01) | LOC: LAB 10:21 | PROVIDERS: ATTEND Internal Medicine | DX: I48.91 Unspecified atrial fibrillation (principal); I48.92 Unspecified atrial flutter; Z79.01 Long term (current) use of anticoagulants | CPT/HCPCS: 36416; 85610 ==

== ENCOUNTER 2022-10-31 08:30 | Outpatient (CLI) | payer MEDICARE, OTHER ==
[2022-10-31 08:54] LABS: CALCIUM 9.6 mg/dL (8.5-10.3); CREATININE 1.9 mg/dL (0.6-1.3)
[2022-10-31 12:42] LABS: ESTIMATED AVERAGE GLUCOSE 128 mg/dL (70-100); HEMOGLOBIN A1c% 6.1 % (4.27-6.07)
== END 2022-10-31 08:31 | disposition home or self-care (01) ==
LOC: LAB 08:30
PROVIDERS: ATTEND Internal Medicine Cardiovascular Disease
DX: E11.9 Type 2 diabetes mellitus without complications (principal); N28.9 Disorder of kidney and ureter, unspecified
CPT/HCPCS: 36415; 80048; 83036

== ENCOUNTER 2022-11-23 09:32 | Outpatient (CLI) | payer MEDICARE, OTHER | END 2022-11-23 09:33 | disposition home or self-care (01) | LOC: LAB 09:32 | PROVIDERS: ATTEND Internal Medicine | DX: I48.91 Unspecified atrial fibrillation (principal); I48.92 Unspecified atrial flutter; Z79.01 Long term (current) use of anticoagulants | CPT/HCPCS: 36416; 85610 ==

== ENCOUNTER 2022-12-19 10:25 | Outpatient (CLI) | payer MEDICARE, OTHER | END 2022-12-19 10:26 | disposition home or self-care (01) | LOC: LAB 10:25 | PROVIDERS: ATTEND Internal Medicine | DX: I48.91 Unspecified atrial fibrillation (principal); I48.92 Unspecified atrial flutter; Z79.01 Long term (current) use of anticoagulants | CPT/HCPCS: 36416; 85610 ==

== ENCOUNTER 2022-12-27 12:00 | Outpatient (CLI) | payer MEDICARE, OTHER | END 2022-12-27 12:01 | disposition home or self-care (01) | LOC: LAB 12:00 | PROVIDERS: ATTEND Internal Medicine | DX: I48.91 Unspecified atrial fibrillation (principal); I48.92 Unspecified atrial flutter; Z79.01 Long term (current) use of anticoagulants | CPT/HCPCS: 36416; 85610 ==

== ENCOUNTER 2023-01-22 11:00 | Outpatient (CLI) | payer MEDICARE, OTHER | END 2023-01-22 11:01 | disposition home or self-care (01) | LOC: LAB 11:00 | PROVIDERS: ATTEND Internal Medicine | DX: I48.91 Unspecified atrial fibrillation (principal); I48.92 Unspecified atrial flutter; Z79.01 Long term (current) use of anticoagulants | CPT/HCPCS: 36416; 85610 ==

== ENCOUNTER 2023-05-02 09:02 | Emergency (ER) | payer MEDICARE, OTHER ==
[2023-05-02 09:38] LABS: BILIRUBIN,URINE NEGATIVE (NEGATIVE); GLUCOSE, URINE (UA) NEGATIVE (NEGATIVE); KETONES,URINE (UA) NEGATIVE (NEGATIVE); LEUKOCYTE ESTERASE, URINE TRACE (NEGATIVE); NITRITE,URINE NEGATIVE (NEGATIVE); OCCULT BLOOD,URINE SMALL (NEGATIVE); PROTEIN,URINE 30 mg/dL (NEGATIVE); UROBILINOGEN,URINE 0.2 (NORMAL) E.U./dL (NORMAL)
[2023-05-02 09:39] LABS: CLARITY,URINE CLEAR (CLEAR)
[2023-05-02] MEDS ORDERED: ONDANSETRON 4 MG/2 ML VIAL IVP STA (09:41)
[2023-05-02] MEDS ORDERED: HYDROmorphone 0.5 MG/0.5 ML SYRINGE IVP STA (09:41)
[2023-05-02 09:48] LABS: BASOPHILS % (AUTO) 0.4 %; EOSINOPHILS % (AUTO) 0.4 %; HCT - HEMATOCRIT 39.4 % (42.0-52.0); HGB - HEMOGLOBIN 12.5 g/dL (14.0-18.0); LYMPHOCYTES # (AUTO) 0.7 10^3/uL (1.5-3.5); LYMPHOCYTES % (AUTO) 8.8 %; MEAN CORPUSCULAR HEMOGLOBIN 32.7 pg (27.0-31.0); MEAN CORPUSCULAR HGB CONC 31.7 g/dL (32.0-36.0); MEAN CORPUSCULAR VOLUME 103.1 fL (80.0-94.0); MONOCYTES # (AUTO) 0.9 10^3/uL (0.0-1.0); MONOCYTES % (AUTO) 11.4 %; NEUTROPHILS # (AUTO) 5.9 10^3/uL (1.5-6.6); NEUTROPHILS % (AUTO) 78.5 %; PLT - PLATELET COUNT 173 10^3/uL (130-450); RED BLOOD COUNT 3.82 10^6/uL (4.70-6.10); RED CELL DISTRIBUTION WIDTH 14.1 % (12.0-15.0); WHITE BLOOD COUNT 7.5 x10^3/uL (4.8-10.8)
[2023-05-02 09:57] LABS: BACTERIA,URINE Few /HPF (None Seen); RBC,URINE 0-5 /HPF (0-5); SQUAMOUS EPITHELIAL CELL,UR RARE Squamous (<= Few)
[2023-05-02 09:58] LABS: ALBUMIN 3.9 g/dL (3.2-5.5); ALBUMIN/GLOBULIN RATIO 1.3 (1.0-2.2); BILIRUBIN,TOTAL 1.5 mg/dL (0.2-1.0); CALCIUM 9.2 mg/dL (8.5-10.3); CREATININE 1.7 mg/dL (0.6-1.3); POTASSIUM 4.4 mmol/L (3.5-4.5); TOTAL PROTEIN 6.9 g/dL (6.4-8.9)
[2023-05-02] MEDS ORDERED: LIDOCAINE PATCH 4% TOP STA (10:21)
--- NOTE | 2023-05-02 10:21 | ED Physician Documentation ---
PD HPI ABD PAIN - Stated complaint Stated Complaint: ,PX - Chief complaint Chief Complaint: Abd Pain - History obtained from History obtained from: Patient - Additional information Additional information: Patient is an 82-year-old male with a history of kidney stones presenting for evaluation of left flank pain radiating to the left abdomen which has been present for the past 1 week. He states it is worse with certain movements. Last week on and Saturday he did notice some blood with his urine. He reports at that time he also had associated nausea. He has been using Tylenol without any improvement. No fevers. In recent days he has not had any blood in his urine and denies dysuria or difficulty with urination. Denies chest pain, cough, congestion, difficulty breathing. Denies trauma or injury. He is on Eliquis for a history of atrial fibrillation. Review of Systems Constitutional: denies: Fever Cardiac: denies: Chest pain / pressure Respiratory: denies: Dyspnea GI: reports: Abdominal Pain, Nausea. denies: Bloody / black stool : reports: Hematuria. denies: Dysuria Musculoskeletal: reports: Back pain PD PAST MEDICAL HISTORY - Past Medical History Cardiovascular: Hypertension, High cholesterol, Atrial fibrillation Respiratory: None, Other Endocrine/Autoimmune: Type 2 diabetes GI: GI bleed, Ulcers, Colon polyps, Other : Kidney stones HEENT: Chronic vision loss, Chronic hearing loss Psych: Post traumatic stress disorder Musculoskeletal: Osteoarthritis, Chronic back pain Derm: None - Past Surgical History Past Surgical History: Yes General: Cholecystectomy, Bowel surgery Ortho: Hip replacement Cardiovascular: Pacemaker HEENT: Tonsil/Adenoidectomy Derm: Skin cancer surgery - Present Medications Home Medications: Ambulatory Orders Medication Instructions Recorded Confirmed Atorvastatin [Lipitor] 1 tab ORAL DAILY 09/20/13 05/02/23 Multivitamin [Multi-Vitamin Daily] 1 each PO DAILY 09/20/13 05/02/23 Acetaminophen [Tylenol] 650 - 975 mg PO Q4HR PRN tablet 05/30/17 05/02/23 Amiodarone [Pacerone] 200 mg ORAL QPM 01/10/20 05/02/23 Metoprolol Succinate [Toprol Xl] 1 tab PO DAILY 01/10/20 05/02/23 Eplerenone [Inspra] 1 tab PO DAILY 05/02/23 05/02/23 Loperamide [Imodium] 1 cap PO PRN PRN 05/02/23 05/02/23 Loratadine/Pseudoephedrine 1 tab PO PRN PRN 05/02/23 05/02/23 [Claritin-D 12 Hour Tablet] Magnesium 2 tab PO DAILY 05/02/23 05/02/23 Oxycodone HCl/Acetaminophen 1 each PO Q6H PRN #10 tablet 05/02/23 [Percocet 5-325 mg Tablet] Rivaroxaban [Xarelto] 1 tab PO DAILY 05/02/23 05/02/23 Sildenafil Citrate [Viagra] 4 tab PO PRN PRN 05/02/23 05/02/23 - Allergies Allergies/Adverse Reactions: Allergies Allergy/AdvReac Type Severity Reaction Status Date / Time erythromycin base Allergy Increased Verified 01/10/20 03:06 [Erythromycin Base] anger/hostile lisinopril Allergy Altered Verified 01/10/20 03:06 Mental Status lovastatin [From Mevacor] Allergy Unknown Verified 01/10/20 03:06 morphine Allergy Hallucinati Verified 01/10/20 03:06 ons/Flashba cks - Social History Does the pt smoke?: No Smoking Status: Former smoker Does the pt drink ETOH?: Yes Does the pt have substance abuse?: No - Immunizations Immunizations are current?: Yes Immunizations: TDAP current <10years - POLST Patient has POLST: No PD ED PE NORMAL - General General: Alert and oriented X 3, No acute distress, Well developed/nourished - HEENT HEENT: Atraumatic, Moist mucous membranes, Pharynx benign - Neck Neck: Supple, no meningeal sign - Cardiac Cardiac: RRR, Strong equal pulses - Respiratory Respiratory: No respiratory distress, Clear bilaterally - Abdomen Abdomen: Normal bowel sounds, Soft, Non tender, Non distended - Back Back: No spinal TTP, Other (Left CVA tenderness, no rash to the flank or abdomen) - Derm Derm: Warm and dry - Extremities Extremities: No edema - Neuro Neuro: Normal speech Results - Vitals Vitals: Vital Signs - 24 hr 05/02/23 05/02/23 09:25 11:28 Temperature 36.7 C 37.4 C Heart Rate 91 95 Respiratory 18 18 Rate Blood Pressure 140/69 H 140/79 H O2 Saturation 100 98 Oxygen O2 Source Room air - Labs Labs: Laboratory Tests 05/02/23 05/02/23 05/02/23 09:17 09:39 09:39 WBC 7.5 RBC 3.82 L Hgb 12.5 L Hct 39.4 L MCV 103.1 H MCH 32.7 H MCHC 31.7 L RDW 14.1 Plt Count 173 MPV 11.0 Neut # (Auto) 5.9 Lymph # (Auto) 0.7 L Mcpherson # (Auto) 0.9 Eos # (Auto) 0.0 Baso # (Auto) 0.0 Absolute Nucleated RBC 0.00 Nucleated RBC % 0.0 Sodium 136 Potassium 4.4 Chloride 106 Carbon Dioxide 21 Anion Gap 9.0 BUN 33 H Creatinine 1.7 H Estimated GFR (MDRD) 39 L Glucose 158 H Calcium 9.2 Total Bilirubin 1.5 H AST 56 H ALT 76 H Alkaline Phosphatase 71 Total Protein 6.9 Albumin 3.9 Globulin 3.0 Albumin/Globulin Ratio 1.3 Lipase 39 Urine Color YELLOW Urine Clarity CLEAR Urine pH 6.0 Ur Specific Crane 1.020 Urine Protein 30 H Urine Glucose (UA) NEGATIVE Urine Ketones NEGATIVE Urine Occult Blood SMALL H Urine Nitrite NEGATIVE Urine Bilirubin NEGATIVE Urine Urobilinogen 0.2 (NORMAL) Ur Leukocyte Esterase TRACE H Urine RBC 0-5 Urine WBC 6-10 H Ur Squamous Epith Cells RARE Squamous Urine Bacteria Few Ur Microscopic Review INDICATED Urine Culture Comments INDICATED PD Medical Decision Making - ED course Complexity details: reviewed results, re-evaluated patient, d/w patient, d/w family ED course: Patient is an 10-year-old male presenting for evaluation of left-sided flank pain that has been present for 1 week. Pain is worse with certain movements and changing positions. He does have tenderness to the area. Vital signs are stable. Did report hematuria last week which is since resolved. No current UTI symptoms. UA does not show significant blood. Labs including CBC chemistries reviewed. Patient has chronic kidney disease and creatinine appears to be near his baseline today. Mild anemia also at his baseline. A CT of the abdomen and pelvis was obtained without IV contrast with no signs of a kidney stone or other acute process. Patient is feeling better here after 1 dose of IV Dilaudid along with Zofran And the lidocaine patch. Given that his symptoms are worse with changing positions including sitting up from laying down I suspect it could be related to a musculoskeletal etiology. His abdominal exam otherwise is benign. He does not have any red flag signs or symptoms in regards to his back pain. He is counseled on need for close follow-up with PCP. He is also advised on concerning symptoms to return for. Departure - Departure Disposition: 01 Home, Self Care Clinical Impression: Left flank pain Condition: Stable Instructions: ED Flank Pain Uncertain Cause Follow-Up: Mariann Deras MD [Provider Admit Priv/Credential] - Prescriptions: Oxycodone HCl/Acetaminophen [Percocet 5-325 mg Tablet] 1 each PO Q6H PRN #10 tablet PRN Reason: pain Comments: Your evaluated for pain to your left flank. This pain appears to be worse when you are moving in certain positions. However given your history of kidney stones we did evaluate you for other causes of of pain. Your urine is being sent for culture but is not overtly clear for an infection and you are not having UTI symptoms at this time. Your kidney function is around his baseline. Your CT scan of the abdomen and pelvis also does not show signs of a kidney stone or other acute process. He did receive pain medicine which seems to have helped. I would recommend close follow-up with your primary care provider, Dr. Deras in the next week or so. I have sent a small amount of narcotic pain medication to [facility]. I am prescribing a short course of narcotic pain medication for you. These are potentially dangerous and addictive medications that should be used carefully. These medications may constipate you. Take an qqtv-owg-[id number] stool softener (docusate) twice daily with plenty of water while taking these medications. If you go 24 hours without a bowel movement, take moqx-xbs-rnofmix miralax, per package instructions. Do not drink or drive while taking these medications. If you received narcotic or sedating medications while in the emergency department, do not drive for 24 hours. Store this medication in a safe, secure place and out of reach of children. It is a violation of federal law to give or sell this medication to another person or to use in a manner other than prescribed. The ED will not refill narcotic prescriptions, including prescriptions lost or stolen. To dispose of unwanted medications: 1. [facility] at [address] in [place] has a medication drop box. They accept prescription medications (in pill form) Saturday through Saturday 9:00 a.m. to 5:00 p.m. 2. [facility] accepts prescription medications (in pill form only) for disposal year round. Call for more information. 3. Contact the [facility] for the next COUNTS INCLUDE 234 BEDS AT THE [facility] sponsored prescription drug collection event. , [id number], or [id number]; Note that many narcotic pain relievers also contain Tylenol/acetaminophen. Please ensure that your total dose of acetaminophen from all sources does not exceed 3 g (3000 mg) per day. Forms: PCP List Discharge Date/Time: 05/02/23 12:06
--- NOTE | 2023-05-02 10:55 | CT Report ---
PROCEDURE: Abdomen/Pelvis WO INDICATIONS: L flank pain TECHNIQUE: A CT scan of the abdomen and pelvis was performed without the use of intravenous contrast. Images we re recorded and evaluated at appropriate window settings. Reformats: coronal and sagittal. For radiat ion dose reduction, the following was used: automated exposure control, adjustment of mA and/or kV ac cording to patient size. COMPARISON: 02/15/2020. FINDINGS: Image quality: Excellent. Lung bases and heart: Cardiomegaly, pacemaker. Extreme lung bases are clear. Liver: Diffuse increased density in the liver, question deposition. No focal mass identified. Gallbladder and biliary tree: Surgically absent Spleen: No splenomegaly. Pancreas: No pancreatic ductal dilation. Adrenals: No adrenal nodule. Kidneys and ureters: No hydronephrosis. No renal cystic lesion which requires follow up. No solid mas s. Bowel and peritoneum: No bowel distension. No pathologic free fluid. Remote right hemicolectomy. Lymph nodes: No central or retroperitoneal adenopathy. Vessels: No infrarenal aortic aneurysm. Extensive atherosclerotic calcifications. PELVIS Reproductive organs: At least moderate and possibly severe prostatomegaly.. Bladder: No wall thickness, accounting for underdistention. Pelvic lymph nodes: No pelvic adenopathy by size criteria. Bones: No aggressive osseous abnormality. Remote total right hip arthroplasty. Diffuse lumbar degener ative change. No acute bony abnormality. Other: No significant ventral or inguinal hernia. IMPRESSION: 1. No acute abdominal process noted. 2. Increased density of the liver. Question hemachromatosis. 3. Cardiomegaly. 4. Small hiatal hernia. 5. At least moderate and possibly severe prostatomegaly. 6. Extensive atherosclerotic calcifications. Reviewed by: Gume Funes MD on 05/02/2023 10:53 AM [facility] Approved by: Gume Funes MD on 05/02/2023 10:53 AM PST Station ID: [id number]
[2023-05-02 11:54] VITALS: BP 140/79; O2SAT 98
--- NOTE | 2023-05-04 11:41 | ED Physician Documentation ---
ED Addendum - Addendum Addendum: 05/04/23 11:40 The patient did not have much urinary symptoms per the chart on the visit 125 but did have some white cells in the urine. In particular CT scan did not show any kidney stones nor signs of hydronephrosis. No other diagnosis was found. His urine did come back showing greater than 100,000 and coag negative staph. Likely contaminant but without another diagnosis it could be reasonable to treat this short-term with doxycycline 100 mg twice daily. He is allergic to er ythromycin lisinopril lovastatin and morphine. I transmitted it to [facility] which is his preferred pharmacy. Nursing staff will notify him.
== END 2023-05-02 12:06 | disposition home or self-care (01) ==
LOC: ED 09:02
DX: R10.9 Unspecified abdominal pain (principal); Z87.442 Personal history of urinary calculi; R82.71 Bacteriuria; N18.9 Chronic kidney disease, unspecified; D64.9 Anemia, unspecified; Z87.891 Personal history of nicotine dependence
CPT/HCPCS: 36415; 74176; 80053; 81001; 83690; 85025; 87086; 96374; 96375; 99284; A9270; J1170; 81003

== ENCOUNTER 2023-06-13 09:26 | Emergency (ER) | payer MEDICARE, OTHER ==
--- NOTE | 2023-06-13 10:37 | XRAY Report ---
PROCEDURE: Hip w/Pelvis 2-3V RT INDICATIONS: pain TECHNIQUE: 2 views of the hip were acquired. COMPARISON: None. FINDINGS: Bones: No fractures or dislocations. No suspicious bony lesions. Right hip arthroplasty. Soft tissues: No suspicious soft tissue calcifications or masses. IMPRESSION: No acute fracture. No osseous lesion. If symptoms and/or clinical suspicion for pathology continue, f urther assessment with repeat plain films, or advanced imaging (e.g., CT, MRI, or bone scan) is recom mended for further assessment. Reviewed by: Britta Solorzano MD on 06/13/2023 10:36 AM [facility] Approved by: Britta Solorzano MD on 06/13/2023 10:36 AM [facility] Station ID: [id number]
--- NOTE | 2023-06-13 11:26 | ED Physician Documentation ---
PD HPI LOWER EXT INJURY - Stated complaint Stated Complaint: RT HIP PX - Chief complaint Chief Complaint: Ext Problem - History obtained from History obtained from: Patient, Family - Additional information Additional information: Patient is an 82-year-old male presenting for evaluation of right hip pain which she states has been ongoing for at least a month. Patient has still been able to ambulate and even 2 days ago was up on a ladder to change ventral light bulbs but reports more pain with ambulation today. He has not really tried anything for his pain other than 2 pills of Tylenol last night. Denies other injury or falls. Has had a prior hip replacement on this side. Pain is worse with certain movements. Also reports having some paresthesias in the right groin which she usually has but states feels worse today. No pain or swelling lower in the leg. Review of Systems Constitutional: denies: Fever Cardiac: denies: Chest pain / pressure Respiratory: denies: Dyspnea GI: denies: Abdominal Pain Musculoskeletal: reports: Extremity pain PD PAST MEDICAL HISTORY - Past Medical History Past Medical History: Yes Cardiovascular: Hypertension, High cholesterol, Atrial fibrillation Respiratory: None, Other Endocrine/Autoimmune: Type 2 diabetes GI: GI bleed, Ulcers, Colon polyps, Other : Kidney stones HEENT: Chronic vision loss, Chronic hearing loss Psych: Post traumatic stress disorder Musculoskeletal: Osteoarthritis, Chronic back pain Derm: None - Past Surgical History Past Surgical History: Yes General: Cholecystectomy, Bowel surgery Ortho: Hip replacement Cardiovascular: Pacemaker HEENT: Tonsil/Adenoidectomy Derm: Skin cancer surgery - Present Medications Home Medications: Ambulatory Orders Medication Instructions Recorded Confirmed Atorvastatin [Lipitor] 1 tab ORAL DAILY 09/20/13 05/02/23 Multivitamin [Multi-Vitamin Daily] 1 each PO DAILY 09/20/13 05/02/23 Acetaminophen [Tylenol] 650 - 975 mg PO Q4HR PRN tablet 05/30/17 05/02/23 Amiodarone [Pacerone] 200 mg ORAL QPM 01/10/20 05/02/23 Metoprolol Succinate [Toprol Xl] 1 tab PO DAILY 01/10/20 05/02/23 Eplerenone [Inspra] 1 tab PO DAILY 05/02/23 05/02/23 Loperamide [Imodium] 1 cap PO PRN PRN 05/02/23 05/02/23 Loratadine/Pseudoephedrine 1 tab PO PRN PRN 05/02/23 05/02/23 [Claritin-D 12 Hour Tablet] Magnesium 2 tab PO DAILY 05/02/23 05/02/23 Oxycodone HCl/Acetaminophen 1 each PO Q6H PRN #10 tablet 05/02/23 [Percocet 5-325 mg Tablet] Rivaroxaban [Xarelto] 1 tab PO DAILY 05/02/23 05/02/23 Sildenafil Citrate [Viagra] 4 tab PO PRN PRN 05/02/23 05/02/23 Doxycycline Hyclate 100 mg PO BID 7 Days #14 cap 05/04/23 HYDROcod/ACETAM 5/325 [[place] 5/325] 1 tablet PO Q6H PRN #12 tablet 06/13/23 Lidocaine Patch 5% [Lidoderm Patch] 1 patch TOP DAILY PRN #10 patch 06/13/23 - Allergies Allergies/Adverse Reactions: Allergies Allergy/AdvReac Type Severity Reaction Status Date / Time erythromycin base Allergy Increased Verified 06/13/23 10:06 [Erythromycin Base] anger/hostile lisinopril Allergy Altered Verified 06/13/23 10:06 Mental Status lovastatin [From Mevacor] Allergy Unknown Verified 06/13/23 10:06 morphine Allergy Hallucinati Verified 06/13/23 10:06 ons/Flashba cks oxycodone AdvReac Headache Verified 06/13/23 10:06 - Social History Does the pt smoke?: No Smoking Status: Never smoker Does the pt drink ETOH?: Yes Does the pt have substance abuse?: No - Immunizations Immunizations are current?: Yes Immunizations: TDAP current <10years - POLST Patient has POLST: No PD ED PE NORMAL - General General: Alert and oriented X 3, No acute distress, Well developed/nourished - HEENT HEENT: Atraumatic, Moist mucous membranes, Pharynx benign - Neck Neck: Supple, no meningeal sign - Cardiac Cardiac: RRR, Strong equal pulses - Respiratory Respiratory: No respiratory distress, Clear bilaterally - Abdomen Abdomen: Soft, Non tender, Non distended - Derm Derm: Warm and dry - Extremities Extremities: No deformity, No edema, No calf tenderness / cord, Other (No redness or swelling to right hip, pain with flexion/extension but no pain with internal or external rotation neck,) - Neuro Neuro: Alert and oriented X 3, No motor deficit, No sensory deficit, Normal speech Results - Vitals Vitals: Vital Signs - 24 hr 06/13/23 06/13/23 09:45 11:44 Temperature 36.5 C Heart Rate 80 82 Respiratory 17 18 Rate Blood Pressure 117/56 L 135/82 H O2 Saturation 100 99 Oxygen O2 Source Room air PD Medical Decision Making - ED course ED course: Patient presenting for evaluation of right hip pain over the course of the last month with recent worsening. No reported trauma. Neurovascular intact. He is ambulatory here. X-ray was obtained which I reviewed reviewed and I see no fracture or issues with the hardware. Patient has pain primarily with flexion but not so much with internal or external rotation. Do suspect likely muscle strain. Discussed continued supportive care and will also prescribe small amount of narcotic pain medication. No pain or swelling more distally in the leg to suggest a DVT. No signs of infection.Patient counseled on need for close follow-up with primary care provider as well as concerning symptoms to return for. Departure - Departure Disposition: Home, Self Care Clinical Impression: Right hip pain Condition: Stable Instructions: ED Strain Muscle Ext Prescriptions: Lidocaine Patch 5% [Lidoderm Patch] 1 patch TOP DAILY PRN #10 patch PRN Reason: pain HYDROcod/ACETAM 5/325 [[place] 5/325] 1 tablet PO Q6H PRN #12 tablet PRN Reason: Pain Comments: Your x-ray does not show a broken or out of place bone. You may have a strain from recent activity. I have sent a small amount of narcotic pain medication to [facility] in [place]. Please also use the lidocaine patches as well as an anti-inflammatory. I would recommend close follow-up with your primary care provider in the next week. I am prescribing a short course of narcotic pain medication for you. These are potentially dangerous and addictive medications that should be used carefully. These medications may constipate you. Take an kvye-viy-loqgtou stool softener (docusate) twice daily with plenty of water while taking these medications. If you go 24 hours without a bowel movement, take [id number] miralax, per package instructions. Do not drink or drive while taking these medications. If you received narcotic or sedating medications while in the emergency department, do not drive for 24 hours. Store this medication in a safe, secure place and out of reach of children. It is a violation of federal law to give or sell this medication to another person or to use in a manner other than prescribed. The ED will not refill narcotic prescriptions, including prescriptions lost or stolen. To dispose of unwanted medications: 1. [facility] at [address] in [place] has a medication drop box. They accept prescription medications (in pill form) Saturday through Saturday 9:00 a.m. to 5:00 p.m. 2. The [facility] [place] [employer] accepts prescription medications (in pill form only) for disposal year round. Call for more information. 3. Contact the [facility] for the next [facility] sponsored prescription drug collection event. , [id number], or [id number]; Note that many narcotic pain relievers also contain Tylenol/acetaminophen. Please ensure that your total dose of acetaminophen from all sources does not exceed 3 g (3000 mg) per day. FINDINGS: Bones: No fractures or dislocations. No suspicious bony lesions. Right hip arthroplasty. Soft tissues: No suspicious soft tissue calcifications or masses. IMPRESSION: No acute fracture. No osseous lesion. If symptoms and/or clinical suspicion for pathology continue, further assessment with repeat plain films, or advanced imaging (e.g., CT, MRI, or bone scan) is recommended for further assessment. Forms: PCP List Discharge Date/Time: 06/13/23 11:44
[2023-06-13] MEDS: HYDROcod/ACETAM 5/325 MG TABLET PO STA (11:33)
[2023-06-13] MEDS: LIDOCAINE PATCH 5% TOP STA (11:33)
[2023-06-13 11:50] VITALS: BP 135/82; O2SAT 99
== END 2023-06-13 11:44 | disposition home or self-care (01) ==
LOC: ED 09:26
DX: M25.551 Pain in right hip (principal); I10 Essential (primary) hypertension; E78.00 Pure hypercholesterolemia, unspecified; I48.91 Unspecified atrial fibrillation; E11.9 Type 2 diabetes mellitus without complications; Z79.899 Other long term (current) drug therapy
CPT/HCPCS: 73502; 99283; A9270